=== PATIENT | female | born 1975 | race Caucasian/White ===

== ENCOUNTER 2016-07-17 04:06 | Inpatient (IN) | payer MEDICAID ==
[2016-07-17 04:37] LABS: APPEARANCE,URINE SLIGHTLY-CLOUDY; BILIRUBIN,URINE NEGATIVE (NEGATIVE); GLUCOSE, URINE NEGATIVE (NEGATIVE); KETONES,URINE NEGATIVE (NEGATIVE); LEUKOCYTE ESTERASE,URINE NEGATIVE (NEGATIVE); NITRITE,URINE NEGATIVE (NEGATIVE); PROTEIN,URINE 100 mg/dL (NEGATIVE); URINE SPECIFIC GRAVITY 1.006; UROBILINOGEN,URINE NEGATIVE mg/dL (<2.0)
[2016-07-17 04:41] LABS: AMNISURE (ROM) POSITIVE (NEGATIVE)
[2016-07-17] MEDS ORDERED: RINGERS SOLUTION,LACTATED 1,000 ML IV ONE (04:46)
[2016-07-17] MEDS ORDERED: RINGERS SOLUTION,LACTATED 1,000 ML IV PRN (04:46)
[2016-07-17] MEDS ORDERED: PENICILLIN G-K 5 MILLION UNIT VIAL ONE ×2 (04:51→09:02)
[2016-07-17] MEDS ORDERED: PENICILLIN G-K 5 MILLION UNIT VIAL IV PRN (04:55)
[2016-07-17] MEDS ORDERED: PENICILLIN G POTASSIUM 5,000,000 UNIT in DEXTROSE 5%-WATER 100 ML IV ONE (05:00)
[2016-07-17 05:03] LABS: URINE BARBITURATES SCREEN NEGATIVE; URINE METHADONE SCREEN NEGATIVE; URINE OPIATES LOW NEGATIVE; URINE PHENCYCLIDINE SCREEN NEGATIVE
[2016-07-17 05:26] LABS: ABSOLUTE EOSINOPHILS # (AUTO) 0.1 10^3/uL (0.0-0.6); ABSOLUTE MONOCYTES (AUTO) 0.8 10^3/uL (0.1-1.4); ABSOLUTE NEUT (AUTO) 6.8 10^3/uL (1.7-8.2); BASOPHILS % (AUTO) 0.4 % (0-2); HEMATOCRIT 29.1 % (36.0-47.0); HGB HCT DIFFERENCE 0.9; LYMPHOCYTES % (AUTO) 27.6 % (13-45); MEAN CORPUSCULAR HEMOGLOBIN 30.4 pg (27.0-33.4); MEAN CORPUSCULAR HGB CONC 34.4 g/dL (32.0-36.0); MEAN CORPUSCULAR VOLUME 88 fl (80-97); MONOCYTES % (AUTO) 7.3 % (3-13); SEGMENTED NEUTROPHILS % (AUTO) 63.7 % (42-78); WHITE BLOOD COUNT 10.7 10^3/uL (4.0-10.5)
[2016-07-17] MEDS ORDERED: OXYTOCIN/NORMAL SALINE 1,000 ML IV PRN ×2 (05:32→12:39)
[2016-07-17] MEDS ORDERED: OXYTOCIN/NORMAL SALINE 20 UNIT/1,000 ML RTUINJ ONE ×2 (05:51→11:35)
[2016-07-17 07:02] LABS: CHLAM PCR NOT DETECTED (NOT DETECT)
[2016-07-17] MEDS ORDERED: PENICILLIN G POTASSIUM 2,500,000 UNIT in DEXTROSE 5%-WATER 50 ML IV SCH (09:00)
[2016-07-17] MEDS ORDERED: FENTANYL/BUPIVACAINE/NS/PF 200 MCG/100 ML RTUINJ EPI ONE (09:03)
[2016-07-17] MEDS ORDERED: BUPIVACAINE HCL 0.25 % INJ/PF (2.5 MG/1 ML) 30 ML VIAL ONE (09:03)
[2016-07-17] MEDS ORDERED: EPHEDRINE SULFATE INJ 50 MG/1 ML AMPULE ONE (09:03)
--- NOTE | 2016-07-17 09:19 | L&D Progress Notes ---
PROGRESS NOTES Datetime Report Generated by CPN: 07/17/2016 09:19 PROGRESS NOTE Impression: Normal Progression of Labor Plan: Continue Present Management; Augmentation Informed Consent Obtained: Vaginal Delivery; Risks, Benefits and Alternatives Discussed Vital Signs : Reviewed Comment: 40 yo presents with PPROM at 0230 clear history- smoker/ ama NKDA nontender FHTs 130s average variability Cat 1 ctxs 1-3 minutes apart pitocin at 10 mu/min poc reviewed GBS prophylaxis x2 second dose infusing bolusing for epidural anticipate VAGINAL EXAM Dilatation: 3 Effacement: 80 Station: 0 MEMBRANES Membranes: Ruptured Amniotic Fluid Color: Clear FETUS A Monitoring: External US Accelerations: 15X15 Decelerations: None FHR Category: Category I : 36.3 SIGNATURE SIGNATURE: [id number] Assignment: Laina Deal MD Signature: with User ID: [email or web address] : with User ID: [email or web address]
[2016-07-17] MEDS ORDERED: MISOPROSTOL 0.2 MG TABLET ONE (11:34)
[2016-07-17] MEDS ORDERED: LIDOCAINE 1% INJ-PF (10 MG/ML) 30 ML SDV ONE (11:35)
[2016-07-17] MEDS ORDERED: BENZOCAINE/MENTHOL AEROSOL SPRAY 56 ML TOP PRN (12:39)
[2016-07-17] MEDS ORDERED: DIPH/PERTUSS(ACELL)/TETANUS VAC/PF 0.5 ML SYR (>=10YO) IM PRN (12:39)
[2016-07-17] MEDS ORDERED: DIBUCAINE 1% OINTMENT 28 GM TP PRN (12:39)
[2016-07-17] MEDS ORDERED: MEASLES,MUMPS&RUBELLA VACC/PF 0.5 ML VIAL SUBCUT PRN (12:39)
[2016-07-17] MEDS ORDERED: ZOLPIDEM TARTRATE 5 MG TABLET PO PRN (12:39)
--- NOTE | 2016-07-17 16:03 | Delivery Summary ---
Del Sum A-C Datetime Report Generated by CPN: 07/17/2016 16:03 DELIVERY PERSONNEL DELIVERY PERSONNEL: [id number] Delivery Doctor:: Taylor Fu CNM Labor and Delivery Nurse:: Elaina Deal RNrail specialist Nurse:: AMANDA Herman Mercerizing Range Controller/ARCHITECTURE PROFESSOR: Chery Saldañahens, ARCHITECTURE PROFESSOR MATERNAL INFORMATION Delivery Anesthesia: Epidural Medications After Delivery: Pitocin Bolus-Please Comment Meds After Delivery Comment: Pitocin 20 units in 1L NS bolusing per order Estimated Blood Loss (ml): 300 Maternal Complications: None Provider Comments: pt on hands and knees deceleration resuscitated with O2 via fm Dr. Deal at bedside pt complete with urge to push pt placed in lithotomy position ang[place] removed delivery of viable male apgars 9/9 bulb suctioned on perineum SHARI infant to abdomen tactile stimulation elicits spont cry cord blood clamped cut by FOB cord blood obtained placenta rivera placenta to pathology EBL 300 cc LABOR SUMMARY EDC: 08/11/2016 00:00 (Annotations: Data stored by N on behalf of user) No. Babies in Womb: 1 Attempted: No Labor Anesthesia: Epidural LABOR INFORMATION Reason for Induction: Not Applicable Onset of Labor: 07/17/2016 09:14 Complete Dilatation: 07/17/2016 11:32 Oxytocin: Augmentation Group B Beta Strep: Unknown Antibiotics # of Doses: 2 Antibiotics Time of Last Dose: 905 Name of Antibiotic Given: PCN Steroids Given: None Reason Steroids Not Administered: Not Applicable MEMBRANES Membranes Rupture Method: Spontaneous Rupture of Membranes: 07/17/2016 02:30 Length of Rupture (hr): 9.17 Amniotic Fluid Color: Clear Amniotic Fluid Amount: Small Amniotic Fluid Odor: Normal STAGES OF LABOR Stage 1 hr: 2 Stage 1 min: 18 Stage 2 hr: 0 Stage 2 min: 8 Stage 3 hr: 0 Stage 3 min: 3 Total Time in Labor hr: 2 Total Time in Labor min: 29 VAGINAL DELIVERY Episiotomy: None Laceration Extension: N/A Laceration Type: None Laceration Repair: Not Applicable Sponge Count Correct: N/A Sharps Count Correct: N/A CSECTION DELIVERY Primary Indication: N/A Secondary Indication: N/A CSection Incidence: N/A Labor: N/A Elective: N/A CSection Incision: N/A BABY A INFORMATION Infant Delivery Date/Time: 07/17/2016 11:40 Method of Delivery: Vaginal Born in Route : No : N/A Forceps: N/A Vacuum Extraction: N/A Shoulder Dystocia : No PRESENTATION/POSITION BABY A Presentation: Cephalic Cephalic Presentation: Vertex Vertex Position: Right Occipital Anterior Breech Presentation: N/A PLACENTA INFORMATION BABY A Placenta Delivery Time : 07/17/2016 11:43 Placenta Method of Delivery: Spontaneous Placenta Status: Delivered SCORES BABY A Heart Rate 1 min: >100 bpm Resp Effort 1 min: Good Cry Reflex Irritability 1 min: Cough or Sneeze or Pulls Away Muscle Tone 1 min: Active Motion Color 1 min: Body Wood, Extremities Blue Resuscitation Effort 1 min: Tactile Stimulation SCORE 1 MIN: 9 Heart Rate 5 min: >100 bpm Resp Effort 5 min: Good Cry Reflex Irritability 5 min: Cough or Sneeze or Pulls Away Muscle Tone 5 min: Active Motion Color 5 min: Body Wood, Extremities Blue Resuscitation Effort 5 min: Tactile Stimulation SCORE 5 MIN: 9 INFANT INFORMATION BABY A Gestational Age at Delivery: 36.3 Gestational Status: Late - 34- 36.6 Weeks Outcome : Liveborn Infant Condition : Stable Infant Sex: Male IDENTIFICATION BABY A Infant Verification Date/Time: 07/17/2016 12:24 ID Band Number: [id number] RN Verifying Infant: Jazmine Camp RNC Additional Verifying Personnel: Elaina Deal RN WEIGHT/LENGTH BABY A Birthweight (gm): 2980 Weight (lb): 6 Weight (oz): 9 Length (in): 20.00 Length (cm): 50.80 CORD INFORMATION BABY A No. Cord Vessels: 3 Nuchal Cord : N/A Cord Blood Taken: Yes-For Storage (Mom's Blood type +) Suction: Mouth; Nose ASSESSMENT BABY A Complications: Multiple Late Decels Physical Findings at Delivery: Within Normal Limits Respirations: Appears Normal Skin to Skin: Yes Skin to Skin Time (min): 20 Cleat Blanker/ALS Called : No Infant Care By: Tyson Bartlett RN Transferred To: Remains with Mother BABY B INFORMATION : N/A SIGNATURES Assignment: Laina Deal MD Signature: with User ID: Sue : with User ID: Sue
--- NOTE | 2016-07-17 17:24 | L&D Discharge Summary ---
OB Discharge Summary Datetime Report Generated by CPN: 07/17/2016 17:24 DISCHARGE DIAGNOSIS Gestation: 36.3 Number of Babies in Womb: 1 Parity: 2
--- NOTE | 2016-07-17 18:02 | L&D General Admission ---
General Admit Datetime Report Generated by N: 07/17/2016 18:00 INFORMATION Patient Age: 40 (07/15/2016 14:21:QS system process) EDC: 08/11/2016 00:00 (Annotations: Data stored by [facility] on behalf of user) (07/17/2016 04:13:Angela Vizcarra RN) : 4 (07/17/2016 04:13:Angela Vizcarra RN) Para: 2 (07/17/2016 04:13:Bere Sneed RN) Term: 2 (07/17/2016 04:13:Bere Sneed RN) : 0 (07/17/2016 04:13:Bere Sneed RN) Spontaneous Abortions: 1 (07/17/2016 04:13:Angela Vizcarra RN) Induced Abortions: 0 (07/17/2016 04:13:Angela Vizcarra RN) Livin (07/17/2016 04:13:Angela Vizcarra RN) Cesareans: 0 (07/17/2016 04:13:Angela Vizcarra RN) VBACs: 0 (07/17/2016 04:13:Angela Vizcarra RN) Ectopic: 0 (07/17/2016 04:13:Angela Vizcarra RN) Multiple Births: 0 (07/17/2016 04:13:Angela Vizcarra RN) Baby, Number in Womb: 1 (07/17/2016 04:13:Angela Vizcarra RN) CARE Primary Product Analyst: [facility] (07/17/2016 04:13:Angela Vizcarra RN) Month of 1st Visit: 2015 (07/17/2016 04:13:Angela Vizcarra RN) Adequate Care: Yes (07/17/2016 04:13:Bere Sneed RN) Prepregnancy Weight (lb): 113 (07/17/2016 04:13:Bere Sneed RN) Prepregnancy Weight (kg): 51.4 (07/17/2016 04:13:QS system process) Height (in): 64 (07/17/2016 14:24:QS system process) ALLERGIES Medication Allergy: Yes (07/17/2016 04:13:Bere Sneed RN) Medication Allergies: No Known Allergies (07/17/2016) (07/17/2016 04:18:QS system process) COMMUNICATION Primary Language: Armenian (07/17/2016 04:13:Angela Vizcarra RN) Medical Tx Preferred Language: Armenian (07/17/2016 04:13:Angela Vizcarra RN) Armenian Communication Ability: Speaks Armenian; Reads Armenian (07/17/2016 04:13:Angela Vizcarra RN) Communication Barrier(s): None (07/17/2016 04:13:Angela Vizcarra RN) DEMOGRAPHICS Address: [address] [place] [id number] (07/15/2016 14:21:QS system process) Zipcode: [address] (07/15/2016 14:21:QS system process) Home (07/15/2016 14:21:QS system process) N: [id number] (07/15/2016 14:21:QS system process) Next of Kin Name: CHRISTIN HERNANDEZ (07/15/2016 14:21:QS system process) Next of Kin (07/15/2016 14:21:QS system process) Next of Kin Relationship: (07/15/2016 14:21:QS system process) Date of : 1975 (07/15/2016 14:21:QS system process) Marital Status: (07/15/2016 14:21:QS system process) Sex: Female (07/15/2016 14:21:QS system process) Race: (07/15/2016 14:21:QS system process) Ethnicity: Non- or (07/15/2016 14:21:QS system process) Episcopal: Bahai (07/15/2016 14:21:QS system process) DRUG AND ALCOHOL USE Alcohol: No (07/17/2016 04:13:Angela Vizcarra RN) Cigarettes: Current Everyday Smoker. [id number] (07/17/2016 04:13:Angela Vizcarra RN) Average Cigarettes Smoked: > 10 per day (07/17/2016 04:13:Angela Vizcarra RN) Advised to Stop Smoking: No (07/17/2016 04:13:Angela Vizcarra RN) Cigarette Comments: 1 ppd (07/17/2016 04:13:Angela Vizcarra RN) Marijuana: No (07/17/2016 04:13:Angela Vizcarra RN) Cocaine: No (07/17/2016 04:13:Angela Vizcarra RN) Other Illicit Drugs: No (07/17/2016 04:13:Angela Vizcarra RN) VACCINE HISTORY Influenza Vaccine: No (07/17/2016 04:13:Angela Vizcarra RN) Pneumococcal Vaccine: No (07/17/2016 04:13:Angela Vizcarra RN) Tetanus Vaccine: Uncertain (07/17/2016 04:13:Angela Vizcarra RN) Tdap Vaccine: Yes (07/17/2016 04:13:Angela Vizcarra RN) Hepatitis B Vaccine: Yes (07/17/2016 04:13:Angela Vizcarra RN) Dance Coach: [facility] (07/17/2016 04:13:Angela Vizcarra RN) Feeding Preference: Breast (07/17/2016 04:13:Angela Vizcarra RN) Benefit of Breast Feed Discussed: Yes (07/17/2016 04:13:Angela Vizcarra RN) Circumcision: Yes (07/17/2016 04:13:Angela Vizcarra RN) Tubal Ligation: No (07/17/2016 04:13:Angela Vizcarra RN) Tubal Authorization Signed: N/A (07/17/2016 04:13:Angela Vizcarra RN) Consent: N/A (07/17/2016 04:13:Angela Vizcarra RN) Consent Signed: N/A (07/17/2016 04:13:Angela Vizcarra RN) Pain Management Plans: Epidural (07/17/2016 04:13:Angela Vizcarra RN) Plans for Labor and Delivery: None (07/17/2016 04:13:Angela Vizcarra RN) Support Person: Tito Fox (07/17/2016 04:13:Angela Vizcarra RN) Support Person Relationship: Significant Other (07/17/2016 04:13:Angela Vizcarra RN) Cultural/Spritual Practice: No (07/17/2016 04:13:Angela Vizcarra RN) Spir/Cult Dietary Needs: No (07/17/2016 04:13:Angela Vizcarra RN) LIVING SITUATION/DISCHARGE PLAN Living Arrangements: Apartment (07/17/2016 04:13:Angela Vizcarra RN) Adequate Access to:: Electric; Heat; Refrigeration; Plumbing/Running water; Phone; Transportation (07/17/2016 04:13:Angela Vizcarra RN) WIC Program: Yes (07/17/2016 04:13:Angela Vizcarra RN) Discharge Career Development Associate Person: Tito (07/17/2016 04:13:Angela Vizcarra RN) Person to Help after Discharge: gina (07/17/2016 04:13:Angela Vizcarra RN) Currently Using Commun Resources: Yes (07/17/2016 04:13:Angela Vizcarra RN) Specify Current Resource Used: Medicaid; food stamps (07/17/2016 04:13:Angela Vizcarra RN) Car Seat for Discharge: Yes (07/17/2016 04:13:Angela Vizcarra RN) Adoption Requested: No (07/17/2016 04:13:Angela Vizcarra RN) Pt Contact w/infant Post : N/A (07/17/2016 04:13:Angela Vizcarra RN) LABS Blood Type: A Positive (07/17/2016 04:13:Bere Sneed RN) Antibody Screen: Negative (07/17/2016 04:13:Bere Sneed RN) Rho(G) this : Not Applicable (07/17/2016 04:13:Bere Sneed RN) Hemoglobin: 10.0 L (07/17/2016 05:04:QS system process) Hematocrit: 29.1 L (07/17/2016 05:04:QS system process) MCV: 88 (07/17/2016 05:04:QS system process) Group Beta Strep: Unknown (07/17/2016 04:13:Bere Sneed RN) RPR/VDRL: Nonreactive (07/17/2016 04:13:Bere Sneed RN) HIV Results: Negative (07/17/2016 04:13:Bere Sneed RN) Hepatitis B: Negative (07/17/2016 04:13:Bere Sneed RN) Rubella: Immune (07/17/2016 04:13:Bere Sneed RN) OB/PREVIOUS HISTORY Previous Procedures: Ultrasound (07/17/2016 04:13:Bere Sneed RN) Current Procedures: Ultrasound (07/17/2016 04:13:Angela Vizcarra RN) History of Previous : No (07/17/2016 04:13:Angela Vizcarra RN) History of Gestational Diabetes: Yes (07/17/2016 04:13:Angela Vizcarra RN) History of PIH: No (07/17/2016 04:13:Angela Vizcarra RN) History of Incompetent Cervix: No (07/17/2016 04:13:Angela Vizcarra RN) History of Placenta Previa/Abrup: No (07/17/2016 04:13:Angela Vizcarra RN) History of Macrosomia: No (07/17/2016 04:13:Angela Vizcarra RN) History of IUGR: No (07/17/2016 04:13:Angela Vizcarra RN) History of Hemorrhage: No (07/17/2016 04:13:Angela Vizcarra RN) History of Loss/Stillborn: No (07/17/2016 04:13:Angela Vizcarra RN) History of : No (07/17/2016 04:13:Angela Vizcarra RN) History of D (Rh) Sensitization: No (07/17/2016 04:13:Angela Vizcarra RN) History Recurrent Loss/Stillborn: No (07/17/2016 04:13:Angela Vizcarra RN) History Depression/PP Depression: No (07/17/2016 04:13:Angela Vizcarra RN) History of Uterine Anomaly/NANO: No (07/17/2016 04:13:Angela Vizcarra RN) History of Infertility: No (07/17/2016 04:13:Angela Vizcarra RN) History of ART Treatment: No (07/17/2016 04:13:Angela Vizcarra RN) History of NANO: No (07/17/2016 04:13:Angela Vizcarra RN) MEDICAL HISTORY Diabetes Type: Gestational Diabetes (07/17/2016 04:13:Angela Vizcarra RN) Med Hx Hypertension: No (07/17/2016 04:13:Angela Vizcarra RN) Med Hx Heart Disease: No (07/17/2016 04:13:Angela Vizcarra RN) Med Hx Autoimmune Disorder: No (07/17/2016 04:13:Angela Vizcarra RN) Med Hx Kidney Disease/UTI: No (07/17/2016 04:13:Angela Vizcarra RN) Med Hx Neurologic/Epilepsy: No (07/17/2016 04:13:Angela Vizcarra RN) Med Hx Psychiatric Disorders: No (07/17/2016 04:13:Angela Vizcarra RN) Med Hx Hepatitis/Liver Disease: No (07/17/2016 04:13:Angela Vizcarra RN) Med Hx Varicosities/Phlebitis: No (07/17/2016 04:13:Angela Vizcarra RN) Med Hx Thyroid Dysfunction: No (07/17/2016 04:13:Angela Vizcarra RN) Med Hx Trauma/Violence: No (07/17/2016 04:13:Angela Vizcarra RN) Med Hx Blood Transfusion: No (07/17/2016 04:13:Angela Vizcarra RN) Med Hx Pulmonary (Asthma,TB): No (07/17/2016 04:13:Angela Vizcarra RN) Med Hx Breast: No (07/17/2016 04:13:Angela Vizcarra RN) Med Hx PRESALES SENIOR SPECIALIST Surgery: No (07/17/2016 04:13:Angela Vizcarra RN) Med Hx Hospitalization/Surgery: Yes (07/17/2016 04:13:Angela Vizcarra RN) Med Hx Anesthetic Complications: No (07/17/2016 04:13:Angela Vizcarra RN) Med Hx Abnormal Pap Smear: No (07/17/2016 04:13:Angela Vizcarra RN) Other Medical Diseases: No (07/17/2016 04:13:Angela Vizcarra RN) Med Hx Significant Family Hx: No (07/17/2016 04:13:Angela Vizcarra RN) INFECTIOUS HISTORY Inf Hx Gonorrhea: No (07/17/2016 04:13:Angela Vizcarra RN) Inf Hx Chlamydia: No (07/17/2016 04:13:Angela Vizcarra RN) Inf Hx Syphilis: No (07/17/2016 04:13:Angela Vizcarra RN) Inf Hx HIV/AIDS: No (07/17/2016 04:13:Angela Vizcarra RN) Inf Hx Human Papilloma Virus: No (07/17/2016 04:13:Angela Vizcarra RN) Inf Hx Pt/Partner Genital Herpes: No (07/17/2016 04:13:Angela Vizcarra RN) Inf Hx Tuberculosis/Exposure: No (07/17/2016 04:13:Angela Vizcarra RN) Inf Hx Hepatitis B,C: No (07/17/2016 04:13:Angela Vizcarra RN) Inf Hx Rash or Viral Illness: No (07/17/2016 04:13:Angela Vizcarra RN) GENETIC HISTORY Gen Hx Age >=35 at CUONG: No (07/17/2016 04:13:Angela Vizcarra RN) Gen Hx Thalassemia: No (07/17/2016 04:13:Angela Vizcarra RN) Gen Hx Congenital Heart Defect: No (07/17/2016 04:13:Angela Vizcarra RN) Gen Hx Neural Tube Defect: No (07/17/2016 04:13:Angela Vizcarra RN) Gen Hx Down's Syndrome: No (07/17/2016 04:13:Angela Vizcarra RN) Gen Hx Rafael-Sachs: No (07/17/2016 04:13:Angela Vizcarra RN) Gen Hx Sundar: No (07/17/2016 04:13:Angela Vizcarra RN) Gen Hx Familial Dysautonomia: No (07/17/2016 04:13:Angela Vizcarra RN) Gen Hx Sickle Cell Disease/Trait: No (07/17/2016 04:13:Angela Vizcarra RN) Gen Hx Cystic Fibrosis: No (07/17/2016 04:13:Angela Vizcarra RN) Gen Hx Huntingtons Chorea: No (07/17/2016 04:13:Angela Vizcarra RN) Gen Hx Mental Retardation/Autism: No (07/17/2016 04:13:Angela Vizcarra RN) Gen Hx Tested for Fragile X: No (07/17/2016 04:13:Angela Vizcarra RN) Gen Hx Other Inher/Chromosomal: No (07/17/2016 04:13:Angela Vizcarra RN) Gen Hx Maternal Metabolic DO: No (07/17/2016 04:13:Angela Vizcarra RN) Gen Hx Pt Father or FOB Defect: No (07/17/2016 04:13:Angela Vizcarra RN) Gen Hx Other Genetic History: No (07/17/2016 04:13:Angela Vizcarra RN) Gen Hx Drugs/Meds since LMP: Yes (07/17/2016 04:13:Angela Vizcarra RN) Gen Hx Medications: prenatals and iron (07/17/2016 04:13:Angela Vizcarra RN)
[2016-07-17] MEDS: FERROUS SULFATE 325 MG TABLET PO SCH (18:43)
[2016-07-17] MEDS: DOCUSATE SODIUM 100 MG CAPSULE PO SCH (18:43)
--- NOTE | 2016-07-17 19:01 | L&D Flow Sheet ---
LD Flowsheet Datetime Report Generated by CPN: 07/17/2016 19:00 Datetime: 07/17/2016 12:28 NBP Sys/Maggie/Mean (mmHg): 117 (QS system process) : 71 (QS system process) : 89 (QS system process) Pulse: 74 (QS system process) Communication Comments: transported to [facility] [place] by Riki Romo RN for low temperature (Elaina Deal RN) LaborFlag: Antepartum (QS system process) Datetime: 07/17/2016 12:03 Bedside Blood Glucose: 89 (QS system process) LaborFlag: Antepartum (QS system process) Datetime: 07/17/2016 11:41 Patient Care Comments: O2 discontinued (Elaina Say, RN) Datetime: 07/17/2016 11:37 NBP Sys/Maggie/Mean (mmHg): 123 (QS system process) : 77 (QS system process) : 93 (QS system process) Pulse: 106 (QS system process) LaborFlag: Antepartum (QS system process) Datetime: 07/17/2016 11:35 Pushing: Coached on Pushing; Urge to Push (Elaina Deal RN) Pushing Position: Pushing with Contractions (Elaina Deal RN) Pushing Progress: Descent with Pushing; Presenting Part Visible; with Pushing; Pushing Effectively with Contractions (Elaina Deal RN) Datetime: 07/17/2016 11:34 Patient Care Comments: [place] removed (Elaina Deal RN) Communication Comments: A. emmel At bedside (Elaina Deal RN) Datetime: 07/17/2016 11:32 Dilatation (cm): 10.0 (Elaina Deal RN) Effacement (%): 100 (Elaina Deal RN) Station: 1 (Elaina Deal RN) Exam by: Dr. Deal (Elaina Deal RN) Datetime: 07/17/2016 11:31 NBP Sys/Maggie/Mean (mmHg): 134 (QS system process) : 75 (QS system process) : 96 (QS system process) Pulse: 92 (QS system process) LaborFlag: Antepartum (QS system process) Datetime: 07/17/2016 11:30 Monitor Mode: External; Palpation (Elaina Deal RN) Frequency (min): 3-4 (Elaina Deal RN) Quality: Moderate (Elaina Deal RN) Duration (sec): 80-100 (Elaina Deal RN) Duration Criteria: Less than Two 120 Second Contractions (Elaina Deal RN) Pattern: Normal: <= 5 Contractions in 10 Minutes (Elaina Deal RN) Resting Tone (Palpate): Relaxed (Elaina Deal RN) Monitor Mode: External US (Elaina Deal RN) FHR Baseline Rate : 90 (Elaina Deal RN) FHR Baseline Changes: Bradycardia (Elaina Deal RN) Variability: Moderate 6-25 bpm (Elaina Deal RN) Accelerations: 15X15 (Elaina Deal RN) Decelerations: None (Elaina Deal RN) Patient Care Comments: o2 at 10 L nonrebreather (Elaina Deal RN) Communication Comments: MD at bedside, reviewing strip (Elaina Deal RN) Datetime: 07/17/2016 11:29 Patient Position/Activity: Left Tilt; Low Fowlers (Elaina Deal, RN) Pushing: Coached on Pushing; No Urge to Push (Elaina Deal RN) Pushing Position: Pushing with Contractions; Pushing Lithotomy (Elaina Deal RN) Pushing Progress: Descent with Pushing; Presenting Part Visible (Elaina Deal RN) Datetime: 07/17/2016 11:26 NBP Sys/Maggie/Mean (mmHg): 115 (QS system process) : 73 (QS system process) : 90 (QS system process) Pulse: 76 (QS system process) LaborFlag: Antepartum (QS system process) Datetime: 07/17/2016 11:24 Dilatation (cm): 9.0 (Elaina Deal RN) Effacement (%): 100 (Elaina Deal RN) Station: 0 (Elaina Deal RN) Exam by: Dr. Deal (Elaina Deal, RN) Patient Position/Activity: Hands-Knees (Elaina Deal, RN) Datetime: 07/17/2016 11:23 Medication Comments: ephedrine 10 mg IV (Elaina Deal, QUYNH) Communication: Provider at Bedside (Elaina Deal, QUYNH) Datetime: 07/17/2016 11:21 NBP Sys/Maggie/Mean (mmHg): 106 (QS system process) : 61 (QS system process) : 79 (QS system process) Pulse: 65 (QS system process) LaborFlag: Antepartum (QS system process) Datetime: 07/17/2016 11:20 Patient Position/Activity: Right Extreme; Low Fowlers (Elaina Deal RN) Datetime: 07/17/2016 11:19 Communication: RN at Bedside (Elaina Deal RN) Datetime: 07/17/2016 11:15 NBP Sys/Maggie/Mean (mmHg): 109 (QS system process) : 60 (QS system process) : 79 (QS system process) Pulse: 81 (QS system process) Monitor Mode: External; Palpation (Elaina Deal RN) Frequency (min): 3-3.5 (Elaina Deal RN) Quality: Moderate (Elaina Say, RN) Duration (sec): 70-90 (Elaina Deal, RN) Duration Criteria: Less than Two 120 Second Contractions (Elaina Deal, RN) Pattern: Normal: <= 5 Contractions in 10 Minutes (Elaina Deal RN) Resting Tone (Palpate): Relaxed (Elaina Deal RN) Monitor Mode: External US (Elaina Deal RN) FHR Baseline Rate : 110 (Elaina Deal, RN) FHR Baseline Changes: No Baseline Change (Elaina Deal, RN) Variability: Moderate 6-25 bpm (Elaina Deal, RN) Accelerations: 15X15 (Elaina Deal, RN) Decelerations: None (Elaina Deal, RN) LaborFlag: Antepartum (QS system process) Datetime: 07/17/2016 11:10 NBP Sys/Maggie/Mean (mmHg): 105 (QS system process) : 59 (QS system process) : 75 (QS system process) Pulse: 66 (QS system process) LaborFlag: Antepartum (QS system process) Datetime: 07/17/2016 11:07 NBP Sys/Maggie/Mean (mmHg): 104 (QS system process) : 56 (QS system process) : 76 (QS system process) Pulse: 77 (QS system process) LaborFlag: Antepartum (QS system process) Datetime: 07/17/2016 11:01 NBP Sys/Maggie/Mean (mmHg): 111 (QS system process) : 62 (QS system process) : 82 (QS system process) Pulse: 67 (QS system process) LaborFlag: Antepartum (QS system process) Datetime: 07/17/2016 11:00 Monitor Mode: External; Palpation (Elaina Deal RN) Frequency (min): 2-3.5 (Elaian Deal RN) Quality: Moderate (Elaina Deal RN) Duration (sec): 70-90 (Elaina Deal RN) Duration Criteria: Less than Two 120 Second Contractions (Elaina Deal RN) Pattern: Normal: <= 5 Contractions in 10 Minutes (Elaina Deal RN) Resting Tone (Palpate): Relaxed (Elaina Deal RN) Monitor Mode: External US (Elaina Deal RN) FHR Baseline Rate : 115 (Elaina Deal RN) FHR Baseline Changes: No Baseline Change (Elaina Deal RN) Variability: Moderate 6-25 bpm (Elaina Deal RN) Accelerations: 15X15 (Elaina Deal RN) Decelerations: Late (Elaina Deal RN) Datetime: 07/17/2016 10:56 NBP Sys/Maggie/Mean (mmHg): 123 (QS system process) : 86 (QS system process) : 100 (QS system process) Pulse: 71 (QS system process) LaborFlag: Antepartum (QS system process) Datetime: 07/17/2016 10:50 NBP Sys/Maggie/Mean (mmHg): 122 (QS system process) : 79 (QS system process) : 96 (QS system process) Pulse: 118 (QS system process) Notification Reason: Status Update; Status (Elaina Deal RN) Communication Comments: Riki Fu CNM notified of discontinuation of Pitocin, no new orders receieved, provider reviewed strip (Elaina Deal RN) LaborFlag: Antepartum (QS system process) Datetime: 07/17/2016 10:45 NBP Sys/Maggie/Mean (mmHg): 121 (QS system process) : 75 (QS system process) : 94 (QS system process) Pulse: 114 (QS system process) Monitor Mode: External; Palpation (Elaina Deal RN) Frequency (min): 3 (Elaina Deal RN) Quality: Mild/Moderate (Elaina Deal RN) Duration (sec): 60-90 (Elaina Deal RN) Duration Criteria: Less than Two 120 Second Contractions (Elaina Deal RN) Pattern: Normal: <= 5 Contractions in 10 Minutes (Elaina Deal RN) Resting Tone (Palpate): Relaxed (Elaina Deal RN) Monitor Mode: External US (Elaina Deal RN) FHR Baseline Rate : 120 (Elaina Deal RN) FHR Baseline Changes: No Baseline Change (Elaina Deal RN) Variability: Moderate 6-25 bpm (Elaina Deal RN) Accelerations: 15X15 (Elaina Deal RN) Decelerations: None (Elaina Deal RN) LaborFlag: Antepartum (QS system process) Datetime: 07/17/2016 10:41 Patient Care Comments: o2 discontinued (Elaina Say, RN) Datetime: 07/17/2016 10:40 NBP Sys/Maggie/Mean (mmHg): 123 (QS system process) : 77 (QS system process) : 93 (QS system process) Pulse: 76 (QS system process) LaborFlag: Antepartum (QS system process) Datetime: 07/17/2016 10:38 NBP Sys/Maggie/Mean (mmHg): 114 (QS system process) : 73 (QS system process) : 89 (QS system process) Pulse: 67 (QS system process) LaborFlag: Antepartum (QS system process) Datetime: 07/17/2016 10:30 NBP Sys/Maggie/Mean (mmHg): 119 (QS system process) : 65 (QS system process) : 86 (QS system process) Pulse: 67 (QS system process) Monitor Mode: External; Palpation (Elaina Deal RN) Frequency (min): 2-4 (Elaina Deal RN) Quality: Mild/Moderate (Elaina Deal RN) Duration (sec): 70-90 (Elaina Deal RN) Resting Tone (Palpate): Relaxed (Elaina Deal RN) Monitor Mode: External US (Elaina Deal RN) Variability: Moderate 6-25 bpm (Elaina Deal RN) Accelerations: 15X15 (Elaina Deal RN) Decelerations: Late; Variable (Elaina Deal RN) Comments: unable to determine baseline (Elaina Deal RN) LaborFlag: Antepartum (QS system process) Datetime: 07/17/2016 10:29 NBP Sys/Maggie/Mean (mmHg): 116 (QS system process) : 61 (QS system process) : 83 (QS system process) Pulse: 60 (QS system process) LaborFlag: Antepartum (QS system process) Datetime: 07/17/2016 10:28 NBP Sys/Maggie/Mean (mmHg): 113 (QS system process) : 57 (QS system process) : 77 (QS system process) Pulse: 67 (QS system process) LaborFlag: Antepartum (QS system process) Datetime: 07/17/2016 10:27 NBP Sys/Maggie/Mean (mmHg): 119 (QS system process) : 62 (QS system process) : 86 (QS system process) Pulse: 73 (QS system process) LaborFlag: Antepartum (QS system process) Datetime: 07/17/2016 10:26 NBP Sys/Maggie/Mean (mmHg): 125 (QS system process) : 63 (QS system process) : 85 (QS system process) Pulse: 68 (QS system process) Patient Position/Activity: Tailors (Elaina Deal RN) LaborFlag: Antepartum (QS system process) Datetime: 07/17/2016 10:25 NBP Sys/Maggie/Mean (mmHg): 123 (QS system process) : 70 (QS system process) : 91 (QS system process) Pulse: 101 (QS system process) LaborFlag: Antepartum (QS system process) Datetime: 07/17/2016 10:24 NBP Sys/Maggie/Mean (mmHg): 123 (QS system process) : 66 (QS system process) : 89 (QS system process) Pulse: 56 (QS system process) Patient Position/Activity: Left Extreme (Elaina Deal, RN) LaborFlag: Antepartum (QS system process) Datetime: 07/17/2016 10:23 NBP Sys/Maggie/Mean (mmHg): 121 (QS system process) : 69 (QS system process) : 91 (QS system process) Pulse: 62 (QS system process) LaborFlag: Antepartum (QS system process) Datetime: 07/17/2016 10:22 NBP Sys/Maggie/Mean (mmHg): 120 (QS system process) : 77 (QS system process) : 94 (QS system process) Pulse: 62 (QS system process) Patient Care Comments: o2 at 10 L nonrebreather (Elaina Deal RN) LaborFlag: Antepartum (QS system process) Datetime: 07/17/2016 10:20 NBP Sys/Maggie/Mean (mmHg): 113 (QS system process) : 64 (QS system process) : 81 (QS system process) Pulse: 67 (QS system process) Patient Position/Activity: Right Lateral (Elaina Deal RN) LaborFlag: Antepartum (QS system process) Datetime: 07/17/2016 10:19 NBP Sys/Maggie/Mean (mmHg): 103 (QS system process) : 56 (QS system process) : 73 (QS system process) Pulse: 75 (QS system process) Medication Comments: ephedrine 10 mg (Elaina Deal RN) LaborFlag: Antepartum (QS system process) Datetime: 07/17/2016 10:18 NBP Sys/Maggie/Mean (mmHg): 104 (QS system process) : 56 (QS system process) : 76 (QS system process) Pulse: 66 (QS system process) LaborFlag: Antepartum (QS system process) Datetime: 07/17/2016 10:17 Medication Comments: pitocin discontinued (Elaina Deal RN) Datetime: 07/17/2016 10:15 NBP Sys/Maggie/Mean (mmHg): 121 (QS system process) : 58 (QS system process) : 84 (QS system process) Pulse: 67 (QS system process) Contraction Comments: unable to determine contration pattern due to patient sitting for epidural, abdomen relaxed between contractions (Elaina Deal RN) Comments: difficult to determine baseline due to patient sitting for epidural (Elaina Deal RN) IV/Blood Work: IV Bolus Started (Elaina Deal RN) LaborFlag: Antepartum (QS system process) Datetime: 07/17/2016 10:14 NBP Sys/Maggie/Mean (mmHg): 130 (QS system process) : 68 (QS system process) : 91 (QS system process) LaborFlag: Antepartum (QS system process) Datetime: 07/17/2016 10:13 NBP Sys/Maggie/Mean (mmHg): 121 (QS system process) : 67 (QS system process) : 88 (QS system process) Pulse: 67 (QS system process) LaborFlag: Antepartum (QS system process) Datetime: 07/17/2016 10:12 NBP Sys/Maggie/Mean (mmHg): 125 (QS system process) : 88 (QS system process) : 102 (QS system process) Pulse: 77 (QS system process) Pulse: 70 (QS system process) SpO2 (%): 99 (QS system process) LaborFlag: Antepartum (QS system process) Datetime: 07/17/2016 10:11 NBP Sys/Maggie/Mean (mmHg): 137 (QS system process) : 87 (QS system process) : 105 (QS system process) Pulse: 71 (QS system process) Anesthesia Plans: Epidural (Elaina Deal RN) Epidural Positioning: Sitting (Elaina Deal RN) Epidural Procedure: Loading Dose (Elaina Deal RN) LaborFlag: Antepartum (QS system process) Datetime: 07/17/2016 10:10 NBP Sys/Maggie/Mean (mmHg): 136 (QS system process) : 98 (QS system process) : 113 (QS system process) Pulse: 72 (QS system process) LaborFlag: Antepartum (QS system process) Datetime: 07/17/2016 10:09 Anesthesia Plans: Epidural (Elaina Deal RN) Epidural Positioning: Sitting (Elaina Deal RN) Epidural Procedure: Test Dose (Elaina Deal RN) Datetime: 07/17/2016 10:08 Anesthesia Plans: Epidural (Elaina Deal, RN) Epidural Positioning: Sitting (Elaina Deal, RN) Epidural Procedure: Cath Placed (Elaina Deal, RN) Datetime: 07/17/2016 10:07 Pulse: 79 (QS system process) SpO2 (%): 100 (QS system process) LaborFlag: Antepartum (QS system process) Datetime: 07/17/2016 10:02 Pulse: 73 (QS system process) SpO2 (%): 100 (QS system process) LaborFlag: Antepartum (QS system process) Datetime: 07/17/2016 10:01 Procedure Verify: Correct Patient Identity; Correct Side and Site are Marked; Accurate Procedure Consent Form; Agreement on Procedure to be Done; Correct Patient Position; Relevant Images and Results are Properly Labeled and Displayed; Addressed Need to Administer Antibiotics or Fluids for Irrigation; Safety Precautions Based on Patient History or Medication Use (Elaina Deal RN) Anesthesia Plans: Epidural (Elaina Deal RN) Anesthesia Comments: Dr. De Los Santos at bedside (Elaina Deal RN) Datetime: 07/17/2016 10:00 Monitor Mode: External; Palpation (Elaina Deal RN) Frequency (min): 2-2.5 (Elaina Deal RN) Quality: Mild/Moderate (Elaina Deal RN) Duration (sec): 80-100 (Elaina Deal RN) Duration Criteria: Less than Two 120 Second Contractions (Elaina Deal RN) Pattern: Normal: <= 5 Contractions in 10 Minutes (Elaina Deal RN) Resting Tone (Palpate): Relaxed (Elaina Deal RN) Monitor Mode: External US (Elaina Deal RN) FHR Baseline Rate : 125 (Elaina Deal RN) FHR Baseline Changes: No Baseline Change (Elaina Say, RN) Variability: Moderate 6-25 bpm (Elaina Deal, RN) Accelerations: 15X15 (Elaina Say, RN) Decelerations: Early (Elaina Deal, RN) Datetime: 07/17/2016 09:58 NBP Sys/Maggie/Mean (mmHg): 156 (QS system process) : 91 (QS system process) : 117 (QS system process) Pulse: 73 (QS system process) LaborFlag: Antepartum (QS system process) Datetime: 07/17/2016 09:57 Pulse: 74 (QS system process) SpO2 (%): 100 (QS system process) LaborFlag: Antepartum (QS system process) Datetime: 07/17/2016 09:56 Procedure Verify: Correct Patient Identity; Correct Side and Site are Marked; Accurate Procedure Consent Form; Agreement on Procedure to be Done; Correct Patient Position; Relevant Images and Results are Properly Labeled and Displayed; Addressed Need to Administer Antibiotics or Fluids for Irrigation; Safety Precautions Based on Patient History or Medication Use (Elaina Deal RN) Anesthesia Plans: Epidural (Elaina Deal RN) Epidural Positioning: Sitting (Elaina Deal RN) Datetime: 07/17/2016 09:46 Patient Care Comments: patient sitting for epidural (Elaina Deal RN) Datetime: 07/17/2016 09:45 Monitor Mode: External; Palpation (Elaina Deal RN) Frequency (min): 2-2.5 (Elaina Deal RN) Quality: Mild/Moderate (Elaina Deal RN) Duration (sec): 50-90 (Elaina Deal RN) Duration Criteria: Less than Two 120 Second Contractions (Elaina Say, RN) Pattern: Normal: <= 5 Contractions in 10 Minutes (Elaina Deal, RN) Resting Tone (Palpate): Relaxed (Elaina Deal, RN) Monitor Mode: External US (Elaina Deal, RN) FHR Baseline Rate : 135 (Elaina Deal, RN) FHR Baseline Changes: No Baseline Change (Elaina Deal, RN) Variability: Moderate 6-25 bpm (Elaina Deal, RN) Accelerations: 15X15 (Elaina Deal, RN) Decelerations: None (Elaina Deal, RN) Pitocin (milliunit): Pitocin Remains (milliunits) @ (Annotations: 10) (Elaina Deal, RN) Datetime: 07/17/2016 09:36 Patient Position/Activity: Right Lateral; Low Fowlers (Elaina Deal, RN) Datetime: 07/17/2016 09:32 I/O Interventions: Up to BR (Elaina Say, RN) Datetime: 07/17/2016 09:30 Monitor Mode: External; Palpation (Elaina Deal, QUYNH) Frequency (min): 2-3 (Elaina Deal, RN) Quality: Mild/Moderate (Elaina Deal, RN) Duration (sec): 80-100 (Elaina Deal, RN) Duration Criteria: Less than Two 120 Second Contractions (Elaina Deal, RN) Pattern: Normal: <= 5 Contractions in 10 Minutes (Elaina Deal, RN) Resting Tone (Palpate): Relaxed (Elaina Deal, RN) Monitor Mode: External US (Elaina Deal, RN) FHR Baseline Rate : 125 (Elaina Deal, RN) FHR Baseline Changes: No Baseline Change (Elaina Deal, RN) Variability: Moderate 6-25 bpm (Elaina Deal, RN) Accelerations: 15X15 (Elaina Deal, RN) Decelerations: None (Elaina Deal, RN) Pitocin (milliunit): Pitocin Remains (milliunits) @ (Annotations: 10) (Elaina Deal, RN) Datetime: 07/17/2016 09:19 IV/Blood Work: New IV Bag Hung (Elaina Deal, QUYNH) Datetime: 07/17/2016 09:15 Monitor Mode: External; Palpation (Elaina Deal RN) Frequency (min): 2-3 (Elaina Deal, QUYNH) Quality: Mild/Moderate (Elaina Deal, RN) Duration (sec): 70-90 (Elaina Deal, QUYNH) Duration Criteria: Less than Two 120 Second Contractions (Elaina Deal, QUYNH) Pattern: Normal: <= 5 Contractions in 10 Minutes (Elaina Deal, RN) Resting Tone (Palpate): Relaxed (Elaina Deal, RN) Monitor Mode: External US (Elaina Deal, QUYNH) FHR Baseline Rate : 140 (Elaina Deal, RN) FHR Baseline Changes: No Baseline Change (Elaina Deal, RN) Variability: Moderate 6-25 bpm (Elaina Deal, RN) Accelerations: 15X15 (Elaina Deal, RN) Decelerations: None (Elaina Deal, QUYNH) Pitocin (milliunit): Pitocin Remains (milliunits) @ (Annotations: 10) (Elaina Deal, QUYNH) Datetime: 07/17/2016 09:14 Procedure Verify: Correct Patient Identity; Correct Side and Site are Marked; Accurate Procedure Consent Form; Agreement on Procedure to be Done; Relevant Images and Results are Properly Labeled and Displayed; Addressed Need to Administer Antibiotics or Fluids for Irrigation; Safety Precautions Based on Patient History or Medication Use (Elaina Deal RN) Anesthesia Comments: patient requesting epidural, pain 4/5 with contractions (Elaina Deal RN) Datetime: 07/17/2016 09:11 Dilatation (cm): 3.0 (Elaina Deal RN) Effacement (%): 80 (Elaina Deal RN) Station: -1 (Elaina Deal RN) Exam by: Riki Fu CNM (Elaina Deal RN) Communication: Provider at Bedside (Elaina Deal RN) Communication Comments: Riki Fu CNM at bedside (Elaina Deal RN) Datetime: 07/17/2016 09:06 Antibiotics: Penicillin IV (Units) @ 2,500,000 (Elaina Deal RN) Datetime: 07/17/2016 09:05 NBP Sys/Maggie/Mean (mmHg): 129 (QS system process) : 85 (QS system process) : 102 (QS system process) Pulse: 68 (QS system process) LaborFlag: Antepartum (QS system process) Datetime: 07/17/2016 09:00 Monitor Mode: External; Palpation (Elaina Deal RN) Frequency (min): 2-2.5 (Elaina Deal RN) Quality: Mild/Moderate (Elaina Deal RN) Duration (sec): 80-100 (Elaina Deal RN) Duration Criteria: Less than Two 120 Second Contractions (Elaina Deal RN) Pattern: Normal: <= 5 Contractions in 10 Minutes (Elaina Deal RN) Resting Tone (Palpate): Relaxed (Elaina Deal RN) Monitor Mode: External US (Elaina Deal RN) FHR Baseline Rate : 140 (Elaina Deal RN) FHR Baseline Changes: No Baseline Change (Elaina Deal RN) Variability: Moderate 6-25 bpm (Elaina Deal RN) Accelerations: 15X15 (Elaina Deal RN) Decelerations: None (Elaina Deal RN) Pitocin (milliunit): Pitocin Remains (milliunits) @ (Annotations: 10) (Elaina Deal RN) Datetime: 07/17/2016 08:59 Patient Position/Activity: Right Extreme; Low Fowlers (Elaina Deal, QUYNH) Datetime: 07/17/2016 08:45 Monitor Mode: External; Palpation (Elaina eDal RN) Frequency (min): 2-3 (Elaina Deal RN) Quality: Mild (Elaina Deal RN) Duration (sec): 80-90 (Elaina Deal RN) Duration Criteria: Less than Two 120 Second Contractions (Elaina Deal RN) Pattern: Normal: <= 5 Contractions in 10 Minutes (Elaina Deal RN) Resting Tone (Palpate): Relaxed (Elaina Deal RN) Monitor Mode: External US (Elaina Deal RN) FHR Baseline Rate : 140 (Elaina Deal RN) FHR Baseline Changes: No Baseline Change (Elaina Deal RN) Variability: Moderate 6-25 bpm (Elaina Deal RN) Accelerations: 15X15 (Elaina Deal RN) Decelerations: None (Elaina Deal RN) Pitocin (milliunit): Pitocin Remains (milliunits) @ (Annotations: 10) (Elaina Deal RN) Datetime: 07/17/2016 08:36 NBP Sys/Maggie/Mean (mmHg): 127 (QS system process) : 86 (QS system process) : 102 (QS system process) Pulse: 58 (QS system process) LaborFlag: Antepartum (QS system process) Datetime: 07/17/2016 08:30 Temperature (F): 98.1 (Elaina Deal RN) Temperature (C): 36.7 (QS system process) Monitor Mode: External; Palpation (Elaina Deal RN) Frequency (min): 2-3 (Elaina Deal RN) Quality: Mild (Elaina Deal RN) Duration (sec): 70-80 (Elaina Deal RN) Duration Criteria: Less than Two 120 Second Contractions (Elaina Deal RN) Pattern: Normal: <= 5 Contractions in 10 Minutes (Elaina Deal RN) Resting Tone (Palpate): Relaxed (Elaina Deal RN) Monitor Mode: External US (Elaina Deal RN) FHR Baseline Rate : 140 (Elaina Deal RN) FHR Baseline Changes: No Baseline Change (Elaina Deal, RN) Variability: Moderate 6-25 bpm (Elaina Deal, RN) Accelerations: 15X15 (Elaina Deal, RN) Decelerations: None (Elaina Deal RN) Pitocin (milliunit): Pitocin Remains (milliunits) @ (Annotations: 10) (Elaina Deal RN) LaborFlag: Antepartum (QS system process) Datetime: 07/17/2016 08:24 Patient Position/Activity: Left Tilt; Low Fowlers (Elaina Deal, RN) Datetime: 07/17/2016 08:20 I/O Interventions: Up to BR (Elaina Deal, RN) Datetime: 07/17/2016 08:15 Monitor Mode: External; Palpation (Elaina Deal, RN) Frequency (min): 2-3.5 (Elaina Deal, RN) Quality: Mild (Elaina Deal, RN) Duration (sec): 40-60 (Elaina Deal, RN) Duration Criteria: Less than Two 120 Second Contractions (Elaina Deal, RN) Pattern: Normal: <= 5 Contractions in 10 Minutes (Elaina Deal, RN) Resting Tone (Palpate): Relaxed (Elaina Deal, RN) Monitor Mode: External US (Elaina Deal, RN) FHR Baseline Rate : 140 (Elaina Deal, RN) FHR Baseline Changes: No Baseline Change (Elaina Deal, RN) Variability: Moderate 6-25 bpm (Elaina Deal, RN) Accelerations: 15X15 (Elaina Deal, RN) Decelerations: None (Elaina Deal, RN) Pitocin (milliunit): Pitocin Increased to (milliunits) @ (Annotations: 10) (Elaina Deal, RN) Datetime: 07/17/2016 08:06 NBP Sys/Maggie/Mean (mmHg): 104 (QS system process) : 65 (QS system process) : 80 (QS system process) Pulse: 66 (QS system process) LaborFlag: Antepartum (QS system process) Datetime: 07/17/2016 08:00 Monitor Mode: External; Palpation (Elaina Deal, RN) Frequency (min): 2-4 (Elaina Deal, RN) Quality: Mild (Elaina Deal, RN) Duration (sec): 50-70 (Elaina Deal, RN) Duration Criteria: Less than Two 120 Second Contractions (Elaina Deal, RN) Pattern: Normal: <= 5 Contractions in 10 Minutes (Elaina Deal, RN) Resting Tone (Palpate): Relaxed (Elaina Deal, RN) Monitor Mode: External US (Elaina Deal, RN) FHR Baseline Rate : 140 (Elaina Deal, RN) Variability: Moderate 6-25 bpm (Elaina Deal, RN) Accelerations: 15X15 (Elaina Deal, RN) Decelerations: None (Elaina Deal, RN) Pitocin (milliunit): Pitocin Remains (milliunits) @ (Annotations: 8) (Elaina Deal, RN) Datetime: 07/17/2016 07:45 Monitor Mode: External; Palpation (Elaina Deal, RN) Frequency (min): 3.5-4 (Elaina Deal, RN) Quality: Mild (Elaina Deal, RN) Duration (sec): 60-70 (Elaina Deal, RN) Duration Criteria: Less than Two 120 Second Contractions (Elaina Deal RN) Pattern: Normal: <= 5 Contractions in 10 Minutes (Elaina Deal RN) Resting Tone (Palpate): Relaxed (Elaina Deal RN) Monitor Mode: External US (Elaina Deal RN) FHR Baseline Rate : 130 (Elaina Deal, RN) FHR Baseline Changes: No Baseline Change (Elaina Deal RN) Variability: Moderate 6-25 bpm (Elaina Deal, RN) Accelerations: 15X15 (Elaina Deal, RN) Decelerations: None (Elaina Deal RN) Pitocin (milliunit): Pitocin Remains (milliunits) @ (Annotations: 8) (Elaina Deal RN) Datetime: 07/17/2016 07:38 NBP Sys/Maggie/Mean (mmHg): 108 (QS system process) : 62 (QS system process) : 79 (QS system process) Pulse: 63 (QS system process) LaborFlag: Antepartum (QS system process) Datetime: 07/17/2016 07:30 Monitor Mode: External; Palpation (Elaina Deal RN) Frequency (min): 2-6 (Elaina Deal RN) Quality: Mild (Elaina Deal RN) Duration (sec): 50-70 (Elaina Deal, QUYNH) Duration Criteria: Less than Two 120 Second Contractions (Elaina Deal RN) Pattern: Normal: <= 5 Contractions in 10 Minutes (Elaina Deal RN) Resting Tone (Palpate): Relaxed (Elaina Deal RN) Monitor Mode: External US (Elaina Deal, QUYNH) FHR Baseline Rate : 125 (Elaina Deal, RN) FHR Baseline Changes: No Baseline Change (Elaina Deal RN) Variability: Moderate 6-25 bpm (Elaina Deal, RN) Accelerations: 15X15 (Elaina Deal, QUYNH) Decelerations: None (Elaina Deal, QUYNH) Pitocin (milliunit): Pitocin Increased to (milliunits) @ (Annotations: 8) (Elaina Deal, QUYNH) Datetime: 07/17/2016 07:15 Monitor Mode: External; Palpation (Elaina Deal RN) Frequency (min): 3.5-6.5 (Elaina Deal RN) Quality: Mild (Elaina Deal RN) Duration (sec): 50-70 (Elaina Deal RN) Duration Criteria: Less than Two 120 Second Contractions (Elaina Deal RN) Pattern: Normal: <= 5 Contractions in 10 Minutes (Elaina Deal, QUYNH) Resting Tone (Palpate): Relaxed (Elaina Deal RN) Monitor Mode: External US (Elaina Deal, QUYNH) FHR Baseline Rate : 130 (Elaina Deal, RN) FHR Baseline Changes: No Baseline Change (Elaina Deal, QUYNH) Variability: Moderate 6-25 bpm (Elaina Deal, RN) Accelerations: 15X15 (Elaina Deal RN) Decelerations: None (Elaina Deal RN) Pitocin (milliunit): Pitocin Remains (milliunits) @ (Annotations: 6) (Elaina Deal RN) Datetime: 07/17/2016 07:10 Additional Nursing Comments: Bedside report given to Norm Deal RN (Angela Vizcarra RN)
--- NOTE | 2016-07-17 20:23 | L&D Current Admission ---
Current Admit Datetime Report Generated by CPN: 07/17/2016 20:20 ADMISSION INFORMATION Current Admit Date/Time: 07/17/2016 04:51 (07/17/2016 04:45:Angela Vizcarra RN) Reason for Admission: Rupture of Membranes (07/17/2016 04:45:Angela Vizcarra RN) Chief Complaint: Suspected Rupture of Membranes (07/17/2016 04:45:Angela Vizcarra RN) EGA per Dates: 36.3 (07/17/2016 04:45:QS system process) Method of Arrival: Wheelchair (07/17/2016 04:45:Angela Vizcarra RN) Reason for Induction: Not Applicable (07/17/2016 04:45:Angela Vizcarra RN) Records Available: Yes (07/17/2016 04:45:Angela Vizcarra RN) General Admission Information: Confirmed (07/17/2016 04:45:Angela Vizcarra RN) General Admission Reviewed By: AMANDA Parmar (07/17/2016 04:45:Angela Vizcarra RN) BELONGINGS/ADVANCED DIRECTIVES Advance Direct for Healthcare: No, but Requests Information (07/17/2016 04:45:Angela Vizcarra RN) Durable Power of Dry Ice Maker: No (07/17/2016 04:45:Angela Vizcarra RN) Living Will: No (07/17/2016 04:45:Angela Vizcarra RN) Organ Donor: Yes (07/17/2016 04:45:Angela Vizcarra RN) Pt Rights Information Given: Yes (07/17/2016 04:45:Angela Vizcarra RN) Pt Understands Pt Rights: Yes (07/17/2016 04:45:Angela Vizcarra RN) Patient Rights Comments: Pt access (07/17/2016 04:45:Angela Vizcarra RN) LEARNING ASSESSMENT Knowledge Level: Understands L_D Process (07/17/2016 04:45:Angela Vizcarra RN) Barriers to Learning: None (07/17/2016 04:45:Angela Vizcarra RN) Learning Readiness: Motivated (07/17/2016 04:45:Angela Vizcarra RN) Learns Best By: 1 to 1 Instruction; Reading; Videos; Group Discussion; Demonstration (07/17/2016 04:45:Angela Vizcarra RN) DOMESTIC VIOLANCE SCREENING Dom Viol Threatened/Hurt: No (07/17/2016 04:45:nAgela Vizcarra RN) Hx of Abuse/Neglect past 2yrs: No (07/17/2016 04:45:Angela Vizcarra RN) Feel Unsafe Going Home: No (07/17/2016 04:45:Angela Vizcarra RN) Addt'l Observ Indicating Abuse: No (07/17/2016 04:45:Angela Vizcarra RN) Reason Unable to Complete Screen: N/A, Screen Completed (07/17/2016 04:45:Angela Vizcarra RN) Considered Personal Harm/Suicide: No (07/17/2016 04:45:Angela Vizcarra RN) NUTRITIONAL/FUNCTIONAL SCREENING Problem with Appetite >5 Days: No (07/17/2016 04:45:Angela Vizcarra RN) Chew/Swallow Difficulties: No (07/17/2016 04:45:Angela Vizcarra RN) Inappropriate Wt Gain/Loss: No (07/17/2016 04:45:Angela Vizcarra RN) Presence Skin Breakdown/Ulcer: No (07/17/2016 04:45:Angela Vizcarra RN) Special Diet: No (07/17/2016 04:45:Angela Vizcarra RN) Pt Requests Executive Administrative Assistant Visit: No (07/17/2016 04:45:Angela Vizcarra RN) Hx of Any of the Following?: N/A (07/17/2016 04:45:Angela Vizcarra RN) New Diagnosis of: N/A (07/17/2016 04:45:Angela Vizcarra RN) Requires Assist w/Ambulation: No (07/17/2016 04:45:Angela Vizcarra RN) Uses Assist Device to Ambulate: No (07/17/2016 04:45:Angela Vizcarra RN) Pt Requires Help w/ADL's: No (07/17/2016 04:45:Angela Vizcarra RN)
--- NOTE | 2016-07-17 20:23 | L&D General Admission ---
General Admit Datetime Report Generated by N: 07/17/2016 20:20 INFORMATION Patient Age: 40 (07/15/2016 14:21:QS system process) EDC: 08/11/2016 00:00 (Annotations: Data stored by [facility] on behalf of user) (07/17/2016 04:13:Angela Vizcarra RN) : 4 (07/17/2016 04:13:Angela Vizcarra RN) Para: 2 (07/17/2016 04:13:Bere Sneed RN) Term: 2 (07/17/2016 04:13:Bere Sneed RN) : 0 (07/17/2016 04:13:Bere Sneed RN) Spontaneous Abortions: 1 (07/17/2016 04:13:Angela Vizcarra RN) Induced Abortions: 0 (07/17/2016 04:13:Angela Vizcarra RN) Livin (07/17/2016 04:13:Angela Vizcarra RN) Cesareans: 0 (07/17/2016 04:13:Angela Vizcarra RN) VBACs: 0 (07/17/2016 04:13:Angela Vizcarra RN) Ectopic: 0 (07/17/2016 04:13:Angela Vizcarra RN) Multiple Births: 0 (07/17/2016 04:13:Angela Vizcarra RN) Baby, Number in Womb: 1 (07/17/2016 04:13:Angela Vizcarra RN) CARE Primary Chair Post Machine Operator: [email or web address] (07/17/2016 04:13:Angela Vizcarra RN) Month of 1st Visit: 2015 (07/17/2016 04:13:Angela Vizcarra RN) Adequate Care: Yes (07/17/2016 04:13:Bere Sneed RN) Prepregnancy Weight (lb): 113 (07/17/2016 04:13:Bere Sneed RN) Prepregnancy Weight (kg): 51.4 (07/17/2016 04:13:QS system process) Height (in): 64 (07/17/2016 14:24:QS system process) ALLERGIES Medication Allergy: Yes (07/17/2016 04:13:Bere Sneed RN) Medication Allergies: No Known Allergies (07/17/2016) (07/17/2016 04:18:QS system process) COMMUNICATION Primary Language: [place] (07/17/2016 04:13:Angela Vizcarra RN) Medical Tx Preferred Language: [place] (07/17/2016 04:13:Angela Vizcarra RN) [place] Communication Ability: Speaks [place]; Reads [place] (07/17/2016 04:13:Angela Vizcarra RN) Communication Barrier(s): None (07/17/2016 04:13:Angela Vizcarra RN) DEMOGRAPHICS Address: [address] [place] [id number] (07/15/2016 14:21:QS system process) Zipcode: [address] (07/15/2016 14:21:QS system process) Home (07/15/2016 14:21:QS system process) N: [phone] (07/15/2016 14:21:QS system process) Next of Kin Name: CHRISTIN HERNANDEZ (07/15/2016 14:21:QS system process) Next of Kin (07/15/2016 14:21:QS system process) Next of Kin Relationship: (07/15/2016 14:21:QS system process) Date of : 1975 (07/15/2016 14:21:QS system process) Marital Status: (07/15/2016 14:21:QS system process) Sex: Female (07/15/2016 14:21:QS system process) Race: (07/15/2016 14:21:QS system process) Ethnicity: Non- or (07/15/2016 14:21:QS system process) Confucianism: Episcopalian (07/15/2016 14:21:QS system process) DRUG AND ALCOHOL USE Alcohol: No (07/17/2016 04:13:Angela Vizcarra RN) Cigarettes: Current Everyday Smoker. [id number] (07/17/2016 04:13:Angela Vizcarra RN) Average Cigarettes Smoked: > 10 per day (07/17/2016 04:13:Angela Vizcarra RN) Advised to Stop Smoking: No (07/17/2016 04:13:Angela Vizcarra RN) Cigarette Comments: 1 ppd (07/17/2016 04:13:Angela Vizcarra RN) Marijuana: No (07/17/2016 04:13:Angela Vizcarra RN) Cocaine: No (07/17/2016 04:13:Angela Vizcarra RN) Other Illicit Drugs: No (07/17/2016 04:13:Angela Vizcarra RN) VACCINE HISTORY Influenza Vaccine: No (07/17/2016 04:13:Angela Vizcarra RN) Pneumococcal Vaccine: No (07/17/2016 04:13:Angela Vizcarra RN) Tetanus Vaccine: Uncertain (07/17/2016 04:13:Angela Vizcarra RN) Tdap Vaccine: Yes (07/17/2016 04:13:Angela Vizcarra RN) Hepatitis B Vaccine: Yes (07/17/2016 04:13:Angela Vizcarra RN) Ent Consultant: [facility] (07/17/2016 04:13:Angela Vizcarra RN) Feeding Preference: Breast (07/17/2016 04:13:Angela Vizcarra RN) Benefit of Breast Feed Discussed: Yes (07/17/2016 04:13:Angela Vizcarra RN) Circumcision: Yes (07/17/2016 04:13:Angela Vizcarra RN) Tubal Ligation: No (07/17/2016 04:13:Angela Vizcarra RN) Tubal Authorization Signed: N/A (07/17/2016 04:13:Angela Vizcarra RN) Consent: N/A (07/17/2016 04:13:Angela Vizcarra RN) Consent Signed: N/A (07/17/2016 04:13:Angela Vizcarra RN) Pain Management Plans: Epidural (07/17/2016 04:13:Angela Vizcarra RN) Plans for Labor and Delivery: None (07/17/2016 04:13:Angela Vizcarra RN) Support Person: Tito Fox (07/17/2016 04:13:Angela Vizcarra RN) Support Person Relationship: Significant Other (07/17/2016 04:13:Angela Vizcarra RN) Cultural/Spritual Practice: No (07/17/2016 04:13:Angela Vizcarra RN) Spir/Cult Dietary Needs: No (07/17/2016 04:13:Angela Vizcarra RN) LIVING SITUATION/DISCHARGE PLAN Living Arrangements: Apartment (07/17/2016 04:13:Angela Vizcarra RN) Adequate Access to:: Electric; Heat; Refrigeration; Plumbing/Running water; Phone; Transportation (07/17/2016 04:13:Angela Vizcarra RN) WIC Program: Yes (07/17/2016 04:13:Angela Vizcarra RN) Discharge Professor Of Pathology Person: Tito (07/17/2016 04:13:Angela Vizcarra RN) Person to Help after Discharge: gina (07/17/2016 04:13:Angela Vizcarra RN) Currently Using Commun Resources: Yes (07/17/2016 04:13:Angela Vizcarra RN) Specify Current Resource Used: Medicaid; food stamps (07/17/2016 04:13:Angela Vizcarra RN) Car Seat for Discharge: Yes (07/17/2016 04:13:Angela Vizcarra RN) Adoption Requested: No (07/17/2016 04:13:Angela Vizcarra RN) Pt Contact w/infant Post : N/A (07/17/2016 04:13:Angela Vizcarra RN) LABS Blood Type: A Positive (07/17/2016 04:13:Bere Sneed RN) Antibody Screen: Negative (07/17/2016 04:13:Bere Sneed RN) Rho(G) this : Not Applicable (07/17/2016 04:13:Bere Sneed RN) Hemoglobin: 10.0 L (07/17/2016 05:04:QS system process) Hematocrit: 29.1 L (07/17/2016 05:04:QS system process) MCV: 88 (07/17/2016 05:04:QS system process) Group Beta Strep: Unknown (07/17/2016 04:13:Bere Sneed RN) RPR/VDRL: Nonreactive (07/17/2016 04:13:Bere Sneed RN) HIV Results: Negative (07/17/2016 04:13:Bere Sneed RN) Hepatitis B: Negative (07/17/2016 04:13:Bere Sneed RN) Rubella: Immune (07/17/2016 04:13:Bere Sneed RN) OB/PREVIOUS HISTORY Previous Procedures: Ultrasound (07/17/2016 04:13:Bere Sneed RN) Current Procedures: Ultrasound (07/17/2016 04:13:Angela Vizcarra RN) History of Previous : No (07/17/2016 04:13:Angela Vizcarra RN) History of Gestational Diabetes: Yes (07/17/2016 04:13:Angela Vizcarra RN) History of PIH: No (07/17/2016 04:13:Angela Vizcarra RN) History of Incompetent Cervix: No (07/17/2016 04:13:Angela Vizcarra RN) History of Placenta Previa/Abrup: No (07/17/2016 04:13:Angela Vizcarra RN) History of Macrosomia: No (07/17/2016 04:13:Angela Vizcarra RN) History of IUGR: No (07/17/2016 04:13:Angela Vizcarra RN) History of Hemorrhage: No (07/17/2016 04:13:Angela Vizcarra RN) History of Loss/Stillborn: No (07/17/2016 04:13:Angela Vizcarra RN) History of : No (07/17/2016 04:13:Angela Vizcarra RN) History of D (Rh) Sensitization: No (07/17/2016 04:13:Angela Vizcarra RN) History Recurrent Loss/Stillborn: No (07/17/2016 04:13:Angela Vizcarra RN) History Depression/PP Depression: No (07/17/2016 04:13:Angela Vizcarra RN) History of Uterine Anomaly/NANO: No (07/17/2016 04:13:Angela Vizcarra RN) History of Infertility: No (07/17/2016 04:13:Angela Vizcarra RN) History of ART Treatment: No (07/17/2016 04:13:Angela Vizcarra RN) History of NANO: No (07/17/2016 04:13:Angela Vizcarra RN) MEDICAL HISTORY Diabetes Type: Gestational Diabetes (07/17/2016 04:13:Angela Vizcarra RN) Med Hx Hypertension: No (07/17/2016 04:13:Angela Vizcarra RN) Med Hx Heart Disease: No (07/17/2016 04:13:Angela Vizcarra RN) Med Hx Autoimmune Disorder: No (07/17/2016 04:13:Angela iVzcarra RN) Med Hx Kidney Disease/UTI: No (07/17/2016 04:13:Angela Vizcarra RN) Med Hx Neurologic/Epilepsy: No (07/17/2016 04:13:Angela Vizcarra RN) Med Hx Psychiatric Disorders: No (07/17/2016 04:13:Angela Vizcarra RN) Med Hx Hepatitis/Liver Disease: No (07/17/2016 04:13:Angela Vizcarra RN) Med Hx Varicosities/Phlebitis: No (07/17/2016 04:13:Angela Vizcarra RN) Med Hx Thyroid Dysfunction: No (07/17/2016 04:13:Angela Vizcarra RN) Med Hx Trauma/Violence: No (07/17/2016 04:13:Angela Vizcarra RN) Med Hx Blood Transfusion: No (07/17/2016 04:13:Angela Vizcarra RN) Med Hx Pulmonary (Asthma,TB): No (07/17/2016 04:13:Angela Vizcarra RN) Med Hx Breast: No (07/17/2016 04:13:Angela Vizcarra RN) Med Hx HIGH LEAD YARDER Surgery: No (07/17/2016 04:13:Angela Vizcarra RN) Med Hx Hospitalization/Surgery: Yes (07/17/2016 04:13:Angela Vizcarra RN) Med Hx Anesthetic Complications: No (07/17/2016 04:13:Angela Vizcarra RN) Med Hx Abnormal Pap Smear: No (07/17/2016 04:13:Angela Vizcarra RN) Other Medical Diseases: No (07/17/2016 04:13:Angela Vizcarra RN) Med Hx Significant Family Hx: No (07/17/2016 04:13:Angela Vizcarra RN) INFECTIOUS HISTORY Inf Hx Gonorrhea: No (07/17/2016 04:13:Angela Vizcarra RN) Inf Hx Chlamydia: No (07/17/2016 04:13:Angela Vizcarra RN) Inf Hx Syphilis: No (07/17/2016 04:13:Angela Vizcarra RN) Inf Hx HIV/AIDS: No (07/17/2016 04:13:Angela Vizcarra RN) Inf Hx Human Papilloma Virus: No (07/17/2016 04:13:Angela Vizcarra RN) Inf Hx Pt/Partner Genital Herpes: No (07/17/2016 04:13:Angela Vizcarra RN) Inf Hx Tuberculosis/Exposure: No (07/17/2016 04:13:Angela Vizcarra RN) Inf Hx Hepatitis B,C: No (07/17/2016 04:13:Angela Vizcarra RN) Inf Hx Rash or Viral Illness: No (07/17/2016 04:13:Angela Vizcarra RN) GENETIC HISTORY Gen Hx Age >=35 at CUONG: No (07/17/2016 04:13:Angela Vizcarra RN) Gen Hx Thalassemia: No (07/17/2016 04:13:Angela Vizcarra RN) Gen Hx Congenital Heart Defect: No (07/17/2016 04:13:Angela Vizcarra RN) Gen Hx Neural Tube Defect: No (07/17/2016 04:13:Angela Vizcarra RN) Gen Hx Down's Syndrome: No (07/17/2016 04:13:Angela Vizcarra RN) Gen Hx Rafael-Sachs: No (07/17/2016 04:13:Angela Vizcarra RN) Gen Hx Sundar: No (07/17/2016 04:13:Angela Vizcarra RN) Gen Hx Familial Dysautonomia: No (07/17/2016 04:13:Angela Vizcarra RN) Gen Hx Sickle Cell Disease/Trait: No (07/17/2016 04:13:Angela Vizcarra RN) Gen Hx Cystic Fibrosis: No (07/17/2016 04:13:Angela Vizcarra RN) Gen Hx Huntingtons Chorea: No (07/17/2016 04:13:Angela Vizcarra RN) Gen Hx Mental Retardation/Autism: No (07/17/2016 04:13:Angela Vizcarra RN) Gen Hx Tested for Fragile X: No (07/17/2016 04:13:Angela Vizcarra RN) Gen Hx Other Inher/Chromosomal: No (07/17/2016 04:13:Angela Vizcarra RN) Gen Hx Maternal Metabolic DO: No (07/17/2016 04:13:Angela Vizcarra RN) Gen Hx Pt Father or FOB Defect: No (07/17/2016 04:13:Angela Vizcarra RN) Gen Hx Other Genetic History: No (07/17/2016 04:13:Angela Vizcarra RN) Gen Hx Drugs/Meds since LMP: Yes (07/17/2016 04:13:Angela Vizcarra RN) Gen Hx Medications: prenatals and iron (07/17/2016 04:13:Angela Vizcarra RN)
--- NOTE | 2016-07-17 20:24 | Delivery Summary ---
Del Sum A-C Datetime Report Generated by CPN: 07/17/2016 20:20 DELIVERY PERSONNEL DELIVERY PERSONNEL: [phone] Delivery Doctor:: Taylor Fu CNM Labor and Delivery Nurse:: Elaina Deal RNtower director Nurse:: AMANDA Herman Veterinarian/FORESTRY FARM LABORER: Chery Saldañahens, FORESTRY FARM LABORER MATERNAL INFORMATION Delivery Anesthesia: Epidural Medications After Delivery: Pitocin Bolus-Please Comment Meds After Delivery Comment: Pitocin 20 units in 1L NS bolusing per order Estimated Blood Loss (ml): 300 Maternal Complications: None Provider Comments: pt on hands and knees deceleration resuscitated with O2 via fm Dr. Deal at bedside pt complete with urge to push pt placed in lithotomy position angeles removed delivery of viable male apgars 9/9 bulb suctioned on perineum SHARI infant to abdomen tactile stimulation elicits spont cry cord blood clamped cut by FOB cord blood obtained placenta rivera placenta to pathology EBL 300 cc LABOR SUMMARY EDC: 08/11/2016 00:00 (Annotations: Data stored by N on behalf of user) No. Babies in Womb: 1 Attempted: No Labor Anesthesia: Epidural LABOR INFORMATION Reason for Induction: Not Applicable Onset of Labor: 07/17/2016 09:14 Complete Dilatation: 07/17/2016 11:32 Oxytocin: Augmentation Group B Beta Strep: Unknown Antibiotics # of Doses: 2 Antibiotics Time of Last Dose: 905 Name of Antibiotic Given: PCN Steroids Given: None Reason Steroids Not Administered: Not Applicable MEMBRANES Membranes Rupture Method: Spontaneous Rupture of Membranes: 07/17/2016 02:30 Length of Rupture (hr): 9.17 Amniotic Fluid Color: Clear Amniotic Fluid Amount: Small Amniotic Fluid Odor: Normal STAGES OF LABOR Stage 1 hr: 2 Stage 1 min: 18 Stage 2 hr: 0 Stage 2 min: 8 Stage 3 hr: 0 Stage 3 min: 3 Total Time in Labor hr: 2 Total Time in Labor min: 29 VAGINAL DELIVERY Episiotomy: None Laceration Extension: N/A Laceration Type: None Laceration Repair: Not Applicable Sponge Count Correct: N/A Sharps Count Correct: N/A CSECTION DELIVERY Primary Indication: N/A Secondary Indication: N/A CSection Incidence: N/A Labor: N/A Elective: N/A CSection Incision: N/A BABY A INFORMATION Infant Delivery Date/Time: 07/17/2016 11:40 Method of Delivery: Vaginal Born in Route : No : N/A Forceps: N/A Vacuum Extraction: N/A Shoulder Dystocia : No PRESENTATION/POSITION BABY A Presentation: Cephalic Cephalic Presentation: Vertex Vertex Position: Right Occipital Anterior Breech Presentation: N/A PLACENTA INFORMATION BABY A Placenta Delivery Time : 07/17/2016 11:43 Placenta Method of Delivery: Spontaneous Placenta Status: Delivered SCORES BABY A Heart Rate 1 min: >100 bpm Resp Effort 1 min: Good Cry Reflex Irritability 1 min: Cough or Sneeze or Pulls Away Muscle Tone 1 min: Active Motion Color 1 min: Body Serena, Extremities Blue Resuscitation Effort 1 min: Tactile Stimulation SCORE 1 MIN: 9 Heart Rate 5 min: >100 bpm Resp Effort 5 min: Good Cry Reflex Irritability 5 min: Cough or Sneeze or Pulls Away Muscle Tone 5 min: Active Motion Color 5 min: Body Serena, Extremities Blue Resuscitation Effort 5 min: Tactile Stimulation SCORE 5 MIN: 9 INFANT INFORMATION BABY A Gestational Age at Delivery: 36.3 Gestational Status: Late - 34- 36.6 Weeks Outcome : Liveborn Infant Condition : Stable Infant Sex: Male IDENTIFICATION BABY A Infant Verification Date/Time: 07/17/2016 12:24 ID Band Number: [id number] RN Verifying Infant: Jazmine Camp [facility] Additional Verifying Personnel: Elaina Deal RN WEIGHT/LENGTH BABY A Birthweight (gm): 2980 Weight (lb): 6 Weight (oz): 9 Length (in): 20.00 Length (cm): 50.80 CORD INFORMATION BABY A No. Cord Vessels: 3 Nuchal Cord : N/A Cord Blood Taken: Yes-For Storage (Mom's Blood type +) Suction: Mouth; Nose ASSESSMENT BABY A Complications: Multiple Late Decels Physical Findings at Delivery: Within Normal Limits Respirations: Appears Normal Skin to Skin: Yes Skin to Skin Time (min): 20 Razor Grinder/ALS Called : No Infant Care By: Tyson Bartlett RN Transferred To: Remains with Mother BABY B INFORMATION : N/A SIGNATURES Assignment: Laina Deal MD Signature: with User ID: Sue : with User ID: Sue
--- NOTE | 2016-07-17 20:28 | L&D General Admission ---
General Admit Datetime Report Generated by N: 07/17/2016 20:20 INFORMATION Patient Age: 40 (07/15/2016 14:21:QS system process) EDC: 08/11/2016 00:00 (Annotations: Data stored by [facility] on behalf of user) (07/17/2016 04:13:Angela Vizcarra RN) : 4 (07/17/2016 04:13:Angela Vizcarra RN) Para: 2 (07/17/2016 04:13:Bere Sneed RN) Term: 2 (07/17/2016 04:13:Bere Sneed RN) : 0 (07/17/2016 04:13:Bere Sneed RN) Spontaneous Abortions: 1 (07/17/2016 04:13:Angela Vizcarra RN) Induced Abortions: 0 (07/17/2016 04:13:Angela Vizcarra RN) Livin (07/17/2016 04:13:Angela Vizcarra RN) Cesareans: 0 (07/17/2016 04:13:Angela Vizcarra RN) VBACs: 0 (07/17/2016 04:13:Angela Vizcarra RN) Ectopic: 0 (07/17/2016 04:13:Angela Vizcarra RN) Multiple Births: 0 (07/17/2016 04:13:Angela Vizcarra RN) Baby, Number in Womb: 1 (07/17/2016 04:13:Angela Vizcarra RN) CARE Primary Wind Energy Project Manager: [facility] (07/17/2016 04:13:Angela Vizcarra RN) Month of 1st Visit: 2015 (07/17/2016 04:13:Angela Vizcarra RN) Adequate Care: Yes (07/17/2016 04:13:Bere Sneed RN) Prepregnancy Weight (lb): 113 (07/17/2016 04:13:Bere Sneed RN) Prepregnancy Weight (kg): 51.4 (07/17/2016 04:13:QS system process) Height (in): 64 (07/17/2016 14:24:QS system process) ALLERGIES Medication Allergy: Yes (07/17/2016 04:13:Bere Sneed RN) Medication Allergies: No Known Allergies (07/17/2016) (07/17/2016 04:18:QS system process) COMMUNICATION Primary Language: Barbadian (07/17/2016 04:13:Angela Vizcarra RN) Medical Tx Preferred Language: Barbadian (07/17/2016 04:13:Angela Vizcarra RN) Barbadian Communication Ability: Speaks Barbadian; Reads Barbadian (07/17/2016 04:13:Angela Vizcarra RN) Communication Barrier(s): None (07/17/2016 04:13:Angela Vizcarra RN) DEMOGRAPHICS Address: [address] [place] [id number] (07/15/2016 14:21:QS system process) Zipcode: [address] (07/15/2016 14:21:QS system process) Home (07/15/2016 14:21:QS system process) N: [id number] (07/15/2016 14:21:QS system process) Next of Kin Name: CHRISTIN HERNANDEZ (07/15/2016 14:21:QS system process) Next of Kin (07/15/2016 14:21:QS system process) Next of Kin Relationship: (07/15/2016 14:21:QS system process) Date of : 1975 (07/15/2016 14:21:QS system process) Marital Status: (07/15/2016 14:21:QS system process) Sex: Female (07/15/2016 14:21:QS system process) Race: (07/15/2016 14:21:QS system process) Ethnicity: Non- or (07/15/2016 14:21:QS system process) Anabaptist: Zoroastrian (07/15/2016 14:21:QS system process) DRUG AND ALCOHOL USE Alcohol: No (07/17/2016 04:13:Angela Vizcarra RN) Cigarettes: Current Everyday Smoker. [id number] (07/17/2016 04:13:Angela Vizacrra RN) Average Cigarettes Smoked: > 10 per day (07/17/2016 04:13:Angela Vizcarra RN) Advised to Stop Smoking: No (07/17/2016 04:13:Angela Vizcarra RN) Cigarette Comments: 1 ppd (07/17/2016 04:13:Angela Vizcarra RN) Marijuana: No (07/17/2016 04:13:Angela Vizcarra RN) Cocaine: No (07/17/2016 04:13:Angela Vizcarra RN) Other Illicit Drugs: No (07/17/2016 04:13:Angela Vizcarra RN) VACCINE HISTORY Influenza Vaccine: No (07/17/2016 04:13:Angela Vizcarra RN) Pneumococcal Vaccine: No (07/17/2016 04:13:Angela Vizcarra RN) Tetanus Vaccine: Uncertain (07/17/2016 04:13:Angela Vizcarra RN) Tdap Vaccine: Yes (07/17/2016 04:13:Angela Vizcarra RN) Hepatitis B Vaccine: Yes (07/17/2016 04:13:Angela Vizcarra RN) Nurse Instructor: [facility] (07/17/2016 04:13:Angela Vizcarra RN) Feeding Preference: Breast (07/17/2016 04:13:Angela Vizcarra RN) Benefit of Breast Feed Discussed: Yes (07/17/2016 04:13:Angela Vizcarra RN) Circumcision: Yes (07/17/2016 04:13:Angela Vizcarra RN) Tubal Ligation: No (07/17/2016 04:13:Angela Vizcarra RN) Tubal Authorization Signed: N/A (07/17/2016 04:13:Angela Vizcarra RN) Consent: N/A (07/17/2016 04:13:Angela Vizcarra RN) Consent Signed: N/A (07/17/2016 04:13:Angela Vizcarra RN) Pain Management Plans: Epidural (07/17/2016 04:13:Angela Vizcarra RN) Plans for Labor and Delivery: None (07/17/2016 04:13:Angela Vizcarra RN) Support Person: Tito Fox (07/17/2016 04:13:Angela Vizcarra RN) Support Person Relationship: Significant Other (07/17/2016 04:13:Angela Vizcarra RN) Cultural/Spritual Practice: No (07/17/2016 04:13:Angela Vizcarra RN) Spir/Cult Dietary Needs: No (07/17/2016 04:13:Angela Vizcarra RN) LIVING SITUATION/DISCHARGE PLAN Living Arrangements: Apartment (07/17/2016 04:13:Angela Vizcarra RN) Adequate Access to:: Electric; Heat; Refrigeration; Plumbing/Running water; Phone; Transportation (07/17/2016 04:13:Angela Vizcarra RN) WIC Program: Yes (07/17/2016 04:13:Angela Vizcarra RN) Discharge Felt Cutter Person: Tito (07/17/2016 04:13:Angela Vizcarra RN) Person to Help after Discharge: gina (07/17/2016 04:13:Angela Vizcarra RN) Currently Using Commun Resources: Yes (07/17/2016 04:13:Angela Vizcarra RN) Specify Current Resource Used: Medicaid; food stamps (07/17/2016 04:13:Angela Vizcarra RN) Car Seat for Discharge: Yes (07/17/2016 04:13:Angela Vizcarra RN) Adoption Requested: No (07/17/2016 04:13:Angela Vizcarra RN) Pt Contact w/infant Post : N/A (07/17/2016 04:13:Angela Vizcarra RN) LABS Blood Type: A Positive (07/17/2016 04:13:Bere Sneed RN) Antibody Screen: Negative (07/17/2016 04:13:Bere Sneed RN) Rho(G) this : Not Applicable (07/17/2016 04:13:Bere Sneed RN) Hemoglobin: 10.0 L (07/17/2016 05:04:QS system process) Hematocrit: 29.1 L (07/17/2016 05:04:QS system process) MCV: 88 (07/17/2016 05:04:QS system process) Group Beta Strep: Unknown (07/17/2016 04:13:Bere Sneed RN) RPR/VDRL: Nonreactive (07/17/2016 04:13:Bere Sneed RN) HIV Results: Negative (07/17/2016 04:13:Bere Sneed RN) Hepatitis B: Negative (07/17/2016 04:13:Bere Sneed RN) Rubella: Immune (07/17/2016 04:13:Bere Sneed RN) OB/PREVIOUS HISTORY Previous Procedures: Ultrasound (07/17/2016 04:13:Bere Sneed RN) Current Procedures: Ultrasound (07/17/2016 04:13:Angela Vizcarra RN) History of Previous : No (07/17/2016 04:13:Angela Vizcarra RN) History of Gestational Diabetes: Yes (07/17/2016 04:13:Angela Vizcarra RN) History of PIH: No (07/17/2016 04:13:Angela Vizcarra RN) History of Incompetent Cervix: No (07/17/2016 04:13:Angela Vizcarra RN) History of Placenta Previa/Abrup: No (07/17/2016 04:13:Angela Vizcarra RN) History of Macrosomia: No (07/17/2016 04:13:Angela Vizcarra RN) History of IUGR: No (07/17/2016 04:13:Angela Vizcarra RN) History of Hemorrhage: No (07/17/2016 04:13:Angela Vizcarra RN) History of Loss/Stillborn: No (07/17/2016 04:13:Angela Vizcarra RN) History of : No (07/17/2016 04:13:Angela Vizcarra RN) History of D (Rh) Sensitization: No (07/17/2016 04:13:Angela Vizcarra RN) History Recurrent Loss/Stillborn: No (07/17/2016 04:13:Angela Vizcarra RN) History Depression/PP Depression: No (07/17/2016 04:13:Angela Vizcarra RN) History of Uterine Anomaly/NANO: No (07/17/2016 04:13:Angela Vizcarra RN) History of Infertility: No (07/17/2016 04:13:Angela Vizcarra RN) History of ART Treatment: No (07/17/2016 04:13:Angela Vizcarra RN) History of NANO: No (07/17/2016 04:13:Angela Vizcarra RN) MEDICAL HISTORY Diabetes Type: Gestational Diabetes (07/17/2016 04:13:Angela Vizcarra RN) Med Hx Hypertension: No (07/17/2016 04:13:Angela Vizcarra RN) Med Hx Heart Disease: No (07/17/2016 04:13:Angela Vizcarra RN) Med Hx Autoimmune Disorder: No (07/17/2016 04:13:Angela Vizcarra RN) Med Hx Kidney Disease/UTI: No (07/17/2016 04:13:Angela Vizcarra RN) Med Hx Neurologic/Epilepsy: No (07/17/2016 04:13:Angela Vizcarra RN) Med Hx Psychiatric Disorders: No (07/17/2016 04:13:Angela Vizcarra RN) Med Hx Hepatitis/Liver Disease: No (07/17/2016 04:13:Angela Vizcarra RN) Med Hx Varicosities/Phlebitis: No (07/17/2016 04:13:Angela Vizcarra RN) Med Hx Thyroid Dysfunction: No (07/17/2016 04:13:Angela Vizcarra RN) Med Hx Trauma/Violence: No (07/17/2016 04:13:Angela Vizcarra RN) Med Hx Blood Transfusion: No (07/17/2016 04:13:Angela Vizcarra RN) Med Hx Pulmonary (Asthma,TB): No (07/17/2016 04:13:Angela Vizcarra RN) Med Hx Breast: No (07/17/2016 04:13:Angela Vizcarra RN) Med Hx COMMERCIAL LINES ACCOUNT MANAGER Surgery: No (07/17/2016 04:13:Angela Vizcarra RN) Med Hx Hospitalization/Surgery: Yes (07/17/2016 04:13:Angela Vizcarra RN) Med Hx Anesthetic Complications: No (07/17/2016 04:13:Angela Vizcarra RN) Med Hx Abnormal Pap Smear: No (07/17/2016 04:13:Angela Vizcarra RN) Other Medical Diseases: No (07/17/2016 04:13:Angela Vizcrara RN) Med Hx Significant Family Hx: No (07/17/2016 04:13:Angela Vizcarra RN) INFECTIOUS HISTORY Inf Hx Gonorrhea: No (07/17/2016 04:13:Angela Vizcarra RN) Inf Hx Chlamydia: No (07/17/2016 04:13:Angela Vizcarra RN) Inf Hx Syphilis: No (07/17/2016 04:13:Angela Vizcarra RN) Inf Hx HIV/AIDS: No (07/17/2016 04:13:Angela Vizcarra RN) Inf Hx Human Papilloma Virus: No (07/17/2016 04:13:Angela Vizcarra RN) Inf Hx Pt/Partner Genital Herpes: No (07/17/2016 04:13:Angela Vizcarra RN) Inf Hx Tuberculosis/Exposure: No (07/17/2016 04:13:Angela Vizcarra RN) Inf Hx Hepatitis B,C: No (07/17/2016 04:13:Angela Vizcarra RN) Inf Hx Rash or Viral Illness: No (07/17/2016 04:13:Angela Vizcarra RN) GENETIC HISTORY Gen Hx Age >=35 at CUONG: No (07/17/2016 04:13:Angela Vizcarra RN) Gen Hx Thalassemia: No (07/17/2016 04:13:Angela Vizcarra RN) Gen Hx Congenital Heart Defect: No (07/17/2016 04:13:Angela Vizcarra RN) Gen Hx Neural Tube Defect: No (07/17/2016 04:13:Angela Vizcarra RN) Gen Hx Down's Syndrome: No (07/17/2016 04:13:Angela Vizcarra RN) Gen Hx Rafael-Sachs: No (07/17/2016 04:13:Angela Vizcarra RN) Gen Hx Sundar: No (07/17/2016 04:13:Angela Vizcarra RN) Gen Hx Familial Dysautonomia: No (07/17/2016 04:13:Angela Vizcarra RN) Gen Hx Sickle Cell Disease/Trait: No (07/17/2016 04:13:Angela Vizcarra RN) Gen Hx Cystic Fibrosis: No (07/17/2016 04:13:Angela Vizcarra RN) Gen Hx Huntingtons Chorea: No (07/17/2016 04:13:Angela Vizcarra RN) Gen Hx Mental Retardation/Autism: No (07/17/2016 04:13:Angela Vizcarra RN) Gen Hx Tested for Fragile X: No (07/17/2016 04:13:Angela Vizcarra RN) Gen Hx Other Inher/Chromosomal: No (07/17/2016 04:13:Angela Vizcarra RN) Gen Hx Maternal Metabolic DO: No (07/17/2016 04:13:Angela Vizcarra RN) Gen Hx Pt Father or FOB Defect: No (07/17/2016 04:13:Angela Vizcarra RN) Gen Hx Other Genetic History: No (07/17/2016 04:13:Angela Vizcarra RN) Gen Hx Drugs/Meds since LMP: Yes (07/17/2016 04:13:Angela Vizcarra RN) Gen Hx Medications: prenatals and iron (07/17/2016 04:13:Angela Vizcarra RN)
--- NOTE | 2016-07-17 20:28 | L&D Current Admission ---
Current Admit Datetime Report Generated by CPN: 07/17/2016 20:20 ADMISSION INFORMATION Current Admit Date/Time: 07/17/2016 04:51 (07/17/2016 04:45:Angela Vizcarra RN) Reason for Admission: Rupture of Membranes (07/17/2016 04:45:Angela Vizcarra RN) Chief Complaint: Suspected Rupture of Membranes (07/17/2016 04:45:Angela Vizcarra RN) EGA per Dates: 36.3 (07/17/2016 04:45:QS system process) Method of Arrival: Wheelchair (07/17/2016 04:45:Angela Vizcarra RN) Reason for Induction: Not Applicable (07/17/2016 04:45:Angela Vizcarra RN) Records Available: Yes (07/17/2016 04:45:Angela Vizcarra RN) General Admission Information: Confirmed (07/17/2016 04:45:Angela Vizcarra RN) General Admission Reviewed By: AMANDA Parmar (07/17/2016 04:45:Angela Vizcarra RN) BELONGINGS/ADVANCED DIRECTIVES Advance Direct for Healthcare: No, but Requests Information (07/17/2016 04:45:Angela Vizcarra RN) Durable Power of Contract Accountant: No (07/17/2016 04:45:Angela Vizcarra RN) Living Will: No (07/17/2016 04:45:Angela Vizcarra RN) Organ Donor: Yes (07/17/2016 04:45:Angela Vizcarra RN) Pt Rights Information Given: Yes (07/17/2016 04:45:Angela Vizcarra RN) Pt Understands Pt Rights: Yes (07/17/2016 04:45:Angela Vizcarra RN) Patient Rights Comments: Pt access (07/17/2016 04:45:Angela Vizcarra RN) LEARNING ASSESSMENT Knowledge Level: Understands L_D Process (07/17/2016 04:45:Angela Vizcarra RN) Barriers to Learning: None (07/17/2016 04:45:Angela Vizcarra RN) Learning Readiness: Motivated (07/17/2016 04:45:Angela Vizcarra RN) Learns Best By: 1 to 1 Instruction; Reading; Videos; Group Discussion; Demonstration (07/17/2016 04:45:Angela Vizcarra RN) DOMESTIC VIOLANCE SCREENING Dom Viol Threatened/Hurt: No (07/17/2016 04:45:Angela Vizcarra RN) Hx of Abuse/Neglect past 2yrs: No (07/17/2016 04:45:Angela Vizcarra RN) Feel Unsafe Going Home: No (07/17/2016 04:45:Angela Vizcarra RN) Addt'l Observ Indicating Abuse: No (07/17/2016 04:45:Angela Vizcarra RN) Reason Unable to Complete Screen: N/A, Screen Completed (07/17/2016 04:45:Angela Vizcarra RN) Considered Personal Harm/Suicide: No (07/17/2016 04:45:Angela Vizcarra RN) NUTRITIONAL/FUNCTIONAL SCREENING Problem with Appetite >5 Days: No (07/17/2016 04:45:Angela Vizcarra RN) Chew/Swallow Difficulties: No (07/17/2016 04:45:Angela Vizcarra RN) Inappropriate Wt Gain/Loss: No (07/17/2016 04:45:Angela Vizcarra RN) Presence Skin Breakdown/Ulcer: No (07/17/2016 04:45:Angela Vizcarra RN) Special Diet: No (07/17/2016 04:45:Angela Vizcarra RN) Pt Requests Head Girls Golf Coach Visit: No (07/17/2016 04:45:Angela Vizcarra RN) Hx of Any of the Following?: N/A (07/17/2016 04:45:Angela Vizcarra RN) New Diagnosis of: N/A (07/17/2016 04:45:Angela Vizcarra RN) Requires Assist w/Ambulation: No (07/17/2016 04:45:Angela Vizcarra RN) Uses Assist Device to Ambulate: No (07/17/2016 04:45:Angela Vizcarra RN) Pt Requires Help w/ADL's: No (07/17/2016 04:45:Angela Vizcarra RN)
--- NOTE | 2016-07-17 20:28 | Delivery Summary ---
Del Sum A-C Datetime Report Generated by CPN: 07/17/2016 20:20 DELIVERY PERSONNEL DELIVERY PERSONNEL: [phone] Delivery Doctor:: Taylor Fu CNM Labor and Delivery Nurse:: Elaina Deal RNjavascript software engineer Nurse:: AMANDA Herman Supervisor [employer]/CURED MEATS SUPERVISOR: Chery Saldañahens, CURED MEATS SUPERVISOR MATERNAL INFORMATION Delivery Anesthesia: Epidural Medications After Delivery: Pitocin Bolus-Please Comment Meds After Delivery Comment: Pitocin 20 units in 1L NS bolusing per order Estimated Blood Loss (ml): 300 Maternal Complications: None Provider Comments: pt on hands and knees deceleration resuscitated with O2 via fm Dr. Deal at bedside pt complete with urge to push pt placed in lithotomy position ang[place] removed delivery of viable male apgars 9/9 bulb suctioned on perineum SHARI infant to abdomen tactile stimulation elicits spont cry cord blood clamped cut by FOB cord blood obtained placenta rivera placenta to pathology EBL 300 cc LABOR SUMMARY EDC: 08/11/2016 00:00 (Annotations: Data stored by N on behalf of user) No. Babies in Womb: 1 Attempted: No Labor Anesthesia: Epidural LABOR INFORMATION Reason for Induction: Not Applicable Onset of Labor: 07/17/2016 09:14 Complete Dilatation: 07/17/2016 11:32 Oxytocin: Augmentation Group B Beta Strep: Unknown Antibiotics # of Doses: 2 Antibiotics Time of Last Dose: 905 Name of Antibiotic Given: PCN Steroids Given: None Reason Steroids Not Administered: Not Applicable MEMBRANES Membranes Rupture Method: Spontaneous Rupture of Membranes: 07/17/2016 02:30 Length of Rupture (hr): 9.17 Amniotic Fluid Color: Clear Amniotic Fluid Amount: Small Amniotic Fluid Odor: Normal STAGES OF LABOR Stage 1 hr: 2 Stage 1 min: 18 Stage 2 hr: 0 Stage 2 min: 8 Stage 3 hr: 0 Stage 3 min: 3 Total Time in Labor hr: 2 Total Time in Labor min: 29 VAGINAL DELIVERY Episiotomy: None Laceration Extension: N/A Laceration Type: None Laceration Repair: Not Applicable Sponge Count Correct: N/A Sharps Count Correct: N/A CSECTION DELIVERY Primary Indication: N/A Secondary Indication: N/A CSection Incidence: N/A Labor: N/A Elective: N/A CSection Incision: N/A BABY A INFORMATION Infant Delivery Date/Time: 07/17/2016 11:40 Method of Delivery: Vaginal Born in Route : No : N/A Forceps: N/A Vacuum Extraction: N/A Shoulder Dystocia : No PRESENTATION/POSITION BABY A Presentation: Cephalic Cephalic Presentation: Vertex Vertex Position: Right Occipital Anterior Breech Presentation: N/A PLACENTA INFORMATION BABY A Placenta Delivery Time : 07/17/2016 11:43 Placenta Method of Delivery: Spontaneous Placenta Status: Delivered SCORES BABY A Heart Rate 1 min: >100 bpm Resp Effort 1 min: Good Cry Reflex Irritability 1 min: Cough or Sneeze or Pulls Away Muscle Tone 1 min: Active Motion Color 1 min: Body [place], Extremities Blue Resuscitation Effort 1 min: Tactile Stimulation SCORE 1 MIN: 9 Heart Rate 5 min: >100 bpm Resp Effort 5 min: Good Cry Reflex Irritability 5 min: Cough or Sneeze or Pulls Away Muscle Tone 5 min: Active Motion Color 5 min: Body [place], Extremities Blue Resuscitation Effort 5 min: Tactile Stimulation SCORE 5 MIN: 9 INFANT INFORMATION BABY A Gestational Age at Delivery: 36.3 Gestational Status: Late - 34- 36.6 Weeks Outcome : Liveborn Infant Condition : Stable Infant Sex: Male IDENTIFICATION BABY A Infant Verification Date/Time: 07/17/2016 12:24 ID Band Number: [id number] RN Verifying Infant: Jazmine Camp RNC Additional Verifying Personnel: Elaina Deal RN WEIGHT/LENGTH BABY A Birthweight (gm): 2980 Weight (lb): 6 Weight (oz): 9 Length (in): 20.00 Length (cm): 50.80 CORD INFORMATION BABY A No. Cord Vessels: 3 Nuchal Cord : N/A Cord Blood Taken: Yes-For Storage (Mom's Blood type +) Suction: Mouth; Nose ASSESSMENT BABY A Complications: Multiple Late Decels Physical Findings at Delivery: Within Normal Limits Respirations: Appears Normal Skin to Skin: Yes Skin to Skin Time (min): 20 Information Receptionist/ALS Called : No Infant Care By: Tyson Bartlett RN Transferred To: Remains with Mother BABY B INFORMATION : N/A SIGNATURES Assignment: Laina Deal MD Signature: with User ID: Sue : with User ID: Sue
--- NOTE | 2016-07-17 20:28 | L&D Admission Assessment ---
LD ADM ASMT Datetime Report Generated by CPN: 07/17/2016 20:20 Assessment Type: Admission Assessment (07/17/2016 04:45:Angela Vizcarra RN) Weight (lb): 132 (07/17/2016 14:24:QS system process) Weight (lb): 132 (07/17/2016 06:09:QS system process) Weight (lb): 132 (07/17/2016 04:30:QS system process) Weight (kg): 60.0 (07/17/2016 14:24:QS system process) Weight (kg): 60.0 (07/17/2016 06:09:QS system process) Weight (kg): 60.0 (07/17/2016 04:30:QS system process) Total Wt Gain (lb): 19 (07/17/2016 14:24:QS system process) Total Wt Gain (lb): 19 (07/17/2016 06:09:QS system process) Total Wt Gain (lb): 19 (07/17/2016 04:30:QS system process) Wt Gain (kg): 8.6 (07/17/2016 14:24:QS system process) Wt Gain (kg): 8.6 (07/17/2016 06:09:QS system process) Wt Gain (kg): 8.6 (07/17/2016 04:30:QS system process) BMI: 22.7 (07/17/2016 14:24:QS system process) BMI: 22.7 (07/17/2016 06:09:QS system process) Onset of Labor: 07/17/2016 09:14 (07/17/2016 04:13:Elaina Deal RN) Pain Scale: 0 (07/17/2016 04:45:Angela Vizcarra, RN) Frequency (min): 3-4 (07/17/2016 11:30:Elaina Say, RN) Frequency (min): 3-3.5 (07/17/2016 11:15:Elaina Say, RN) Frequency (min): 2-3.5 (07/17/2016 11:00:Elaina Say, RN) Frequency (min): 3 (07/17/2016 10:45:Elaina Say, RN) Frequency (min): 2-4 (07/17/2016 10:30:Elaina Say, RN) Frequency (min): 2-2.5 (07/17/2016 10:00:Elaina Say, RN) Frequency (min): 2-2.5 (07/17/2016 09:45:Elaina Say, RN) Frequency (min): 2-3 (07/17/2016 09:30:Elaina Say, RN) Frequency (min): 2-3 (07/17/2016 09:15:Elaina Say, RN) Frequency (min): 2-2.5 (07/17/2016 09:00:Elaina Say, RN) Frequency (min): 2-3 (07/17/2016 08:45:Elaina Say, RN) Frequency (min): 2-3 (07/17/2016 08:30:Elaina Say, RN) Frequency (min): 2-3.5 (07/17/2016 08:15:Elaina Say, RN) Frequency (min): 2-4 (07/17/2016 08:00:Elaina Say, RN) Frequency (min): 3.5-4 (07/17/2016 07:45:Elaina Say, RN) Frequency (min): 2-6 (07/17/2016 07:30:Elaina Say, RN) Frequency (min): 3.5-6.5 (07/17/2016 07:15:Elaina Say, RN) Frequency (min): 2-4 (07/17/2016 06:59:Angeladavi Vizcarra, RN) Frequency (min): 6 (07/17/2016 06:45:Angela Vizcarra, RN) Frequency (min): 2-6 (07/17/2016 06:30:Angela Vizcarra RN) Frequency (min): 2-5 (07/17/2016 06:15:Angela Vizcarra RN) Frequency (min): 4-5 (07/17/2016 06:00:Angela Vizcarra RN) Frequency (min): 3-5 (07/17/2016 05:30:Angela Vizcarra RN) Frequency (min): 4-7 (07/17/2016 05:00:Angela Vizcarra RN) Frequency (min): q 13 min per pt (07/17/2016 04:45:Angela Vizcarra RN) Duration (sec): 80-100 (07/17/2016 11:30:Elaina Deal RN) Duration (sec): 70-90 (07/17/2016 11:15:Elaina Deal RN) Duration (sec): 70-90 (07/17/2016 11:00:Elaina Deal RN) Duration (sec): 60-90 (07/17/2016 10:45:Elaina Deal RN) Duration (sec): 70-90 (07/17/2016 10:30:Elaina Deal RN) Duration (sec): 80-100 (07/17/2016 10:00:Elaina Deal RN) Duration (sec): 50-90 (07/17/2016 09:45:Elaina Deal RN) Duration (sec): 80-100 (07/17/2016 09:30:Elaina Deal RN) Duration (sec): 70-90 (07/17/2016 09:15:Elaina Deal RN) Duration (sec): 80-100 (07/17/2016 09:00:Elaina Deal RN) Duration (sec): 80-90 (07/17/2016 08:45:Elaina Deal RN) Duration (sec): 70-80 (07/17/2016 08:30:Elaina Deal RN) Duration (sec): 40-60 (07/17/2016 08:15:Elaina Deal RN) Duration (sec): 50-70 (07/17/2016 08:00:Elaina Deal RN) Duration (sec): 60-70 (07/17/2016 07:45:Elaina Say, RN) Duration (sec): 50-70 (07/17/2016 07:30:Elaina Deal RN) Duration (sec): 50-70 (07/17/2016 07:15:Elaina Deal RN) Duration (sec): 70-120 (07/17/2016 06:45:Angela Vizcarra RN) Duration (sec): 60-120 (07/17/2016 06:30:Angela Vizcarra RN) Duration (sec): 60-100 (07/17/2016 06:15:Angela Vizcarra RN) Duration (sec): 50-90 (07/17/2016 06:00:Angela Vizcarra RN) Duration (sec): 50-80 (07/17/2016 05:30:Angela Vizcarra RN) Duration (sec): 50-80 (07/17/2016 05:00:Angela Vizcarra RN) Quality: Moderate (07/17/2016 11:30:Elaina Deal RN) Quality: Moderate (07/17/2016 11:15:Elaina Deal RN) Quality: Moderate (07/17/2016 11:00:Elaina Deal RN) Quality: Mild/Moderate (07/17/2016 10:45:Elaina Deal RN) Quality: Mild/Moderate (07/17/2016 10:30:Elaina Deal RN) Quality: Mild/Moderate (07/17/2016 10:00:Elaina Deal RN) Quality: Mild/Moderate (07/17/2016 09:45:Elaina Deal RN) Quality: Mild/Moderate (07/17/2016 09:30:Elaina Deal RN) Quality: Mild/Moderate (07/17/2016 09:15:Elaina Deal RN) Quality: Mild/Moderate (07/17/2016 09:00:Elaina Deal RN) Quality: Mild (07/17/2016 08:45:Elaina Deal RN) Quality: Mild (07/17/2016 08:30:Elaina Deal RN) Quality: Mild (07/17/2016 08:15:Elaina Deal RN) Quality: Mild (07/17/2016 08:00:Elaina Deal RN) Quality: Mild (07/17/2016 07:45:Elaina Deal RN) Quality: Mild (07/17/2016 07:30:Elaina Deal RN) Quality: Mild (07/17/2016 07:15:Elaina Deal RN) Quality: Mild (07/17/2016 06:59:Angela Vizcarra RN) Quality: Mild (07/17/2016 06:45:Angela Vizcarra RN) Quality: Mild (07/17/2016 06:30:Angela Vizcarra RN) Quality: Mild (07/17/2016 06:15:Angela Vizcarra RN) Quality: Mild (07/17/2016 06:00:Angela Vizcarra RN) Quality: Mild (07/17/2016 05:30:Angela Vizcarra RN) Quality: Mild (07/17/2016 05:00:Angela Vizcarra RN) Pattern: Normal: <= 5 Contractions in 10 Minutes (07/17/2016 11:30:Elaina Deal RN) Pattern: Normal: <= 5 Contractions in 10 Minutes (07/17/2016 11:15:Elaina Deal RN) Pattern: Normal: <= 5 Contractions in 10 Minutes (07/17/2016 11:00:Elaina Deal RN) Pattern: Normal: <= 5 Contractions in 10 Minutes (07/17/2016 10:45:Elaina Deal RN) Pattern: Normal: <= 5 Contractions in 10 Minutes (07/17/2016 10:00:Elaina Dela RN) Pattern: Normal: <= 5 Contractions in 10 Minutes (07/17/2016 09:45:Elaina Deal RN) Pattern: Normal: <= 5 Contractions in 10 Minutes (07/17/2016 09:30:Elaina Deal RN) Pattern: Normal: <= 5 Contractions in 10 Minutes (07/17/2016 09:15:Elaina Deal RN) Pattern: Normal: <= 5 Contractions in 10 Minutes (07/17/2016 09:00:Elaina Deal RN) Pattern: Normal: <= 5 Contractions in 10 Minutes (07/17/2016 08:45:Elaina Deal RN) Pattern: Normal: <= 5 Contractions in 10 Minutes (07/17/2016 08:30:Elaina Deal RN) Pattern: Normal: <= 5 Contractions in 10 Minutes (07/17/2016 08:15:Elaina Say, RN) Pattern: Normal: <= 5 Contractions in 10 Minutes (07/17/2016 08:00:Elaina Deal RN) Pattern: Normal: <= 5 Contractions in 10 Minutes (07/17/2016 07:45:Elaina Deal RN) Pattern: Normal: <= 5 Contractions in 10 Minutes (07/17/2016 07:30:Elaina Deal RN) Pattern: Normal: <= 5 Contractions in 10 Minutes (07/17/2016 07:15:Elaina Deal RN) Pattern: Normal: <= 5 Contractions in 10 Minutes (07/17/2016 06:59:Angela Vizcarra, RN) Pattern: Normal: <= 5 Contractions in 10 Minutes (07/17/2016 06:45:Angela Vizcarra RN) Pattern: Normal: <= 5 Contractions in 10 Minutes (07/17/2016 06:30:Angela Vizcarra, RN) Pattern: Normal: <= 5 Contractions in 10 Minutes (07/17/2016 06:15:Angela Vizcarra, RN) Pattern: Normal: <= 5 Contractions in 10 Minutes (07/17/2016 06:00:Angela Vizcarra, RN) Pattern: Normal: <= 5 Contractions in 10 Minutes (07/17/2016 05:30:Angela Vizcarra, RN) Pattern: Normal: <= 5 Contractions in 10 Minutes (07/17/2016 05:00:Angela Vizcarra, RN) Resting Tone [place]: Relaxed (07/17/2016 11:30:Elaina Deal RN) Resting Tone [place]: Relaxed (07/17/2016 11:15:Elaina Deal RN) Resting Tone [place]: Relaxed (07/17/2016 11:00:Elaina Deal RN) Resting Tone [place]: Relaxed (07/17/2016 10:45:Elaina Deal RN) Resting Tone [place]: Relaxed (07/17/2016 10:30:Elaina Deal RN) Resting Tone [place]: Relaxed (07/17/2016 10:00:Elaina Deal RN) Resting Tone [place]: Relaxed (07/17/2016 09:45:Elaina Deal RN) Resting Tone [place]: Relaxed (07/17/2016 09:30:Elaina Deal RN) Resting Tone [place]: Relaxed (07/17/2016 09:15:Elaina Deal RN) Resting Tone [place]: Relaxed (07/17/2016 09:00:Elaina Deal RN) Resting Tone [place]: Relaxed (07/17/2016 08:45:Elaina Deal RN) Resting Tone [place]: Relaxed (07/17/2016 08:30:Elaina Deal RN) Resting Tone [place]: Relaxed (07/17/2016 08:15:Elaina Deal RN) Resting Tone [place]: Relaxed (07/17/2016 08:00:Elaina Deal RN) Resting Tone [place]: Relaxed (07/17/2016 07:45:Elaina Deal RN) Resting Tone [place]: Relaxed (07/17/2016 07:30:Elaina Deal RN) Resting Tone [place]: Relaxed (07/17/2016 07:15:Elaina Deal RN) Resting Tone [place]: Relaxed (07/17/2016 06:59:Angela Vizcarra RN) Resting Tone [place]: Relaxed (07/17/2016 06:45:Angela Vizcarra RN) Resting Tone [place]: Relaxed (07/17/2016 06:30:Angela Vizcarra RN) Resting Tone [place]: Relaxed (07/17/2016 06:15:Angela Vizcarra RN) Resting Tone [place]: Relaxed (07/17/2016 06:00:Angela Vizcarra RN) Resting Tone [place]: Relaxed (07/17/2016 05:30:Angela Vizcarra RN) Resting Tone [place]: Relaxed (07/17/2016 05:00:Angela Vizcarra RN) Contraction Comments: unable to determine contration pattern due to patient sitting for epidural, abdomen relaxed between contractions (07/17/2016 10:15:Elaina Deal RN) Contraction Comments: Pt states she is "starting to feel u/c's" (07/17/2016 06:00:Angela Vizcarra RN) Dilatation (cm): 10.0 (07/17/2016 11:32:Elaina Deal RN) Dilatation (cm): 9.0 (07/17/2016 11:24:Elaina Deal RN) Dilatation (cm): 3.0 (07/17/2016 09:11:Elaina Deal RN) Dilatation (cm): 2.5 (07/17/2016 04:30:Angela Vizcarra RN) Effacement (%): 100 (07/17/2016 11:32:Elaina Deal RN) Effacement (%): 100 (07/17/2016 11:24:Elaina Deal RN) Effacement (%): 80 (07/17/2016 09:11:Elaina Deal RN) Effacement (%): 50 (07/17/2016 04:30:Angela Vizcarra RN) Station: 1 (07/17/2016 11:32:Elaina Deal RN) Station: 0 (07/17/2016 11:24:Elaina Deal RN) Station: -1 (07/17/2016 09:11:Elaina Deal RN) Station: -2 (07/17/2016 04:30:Angela Vizcarra RN) Membranes Status: Ruptured (Annotations: pooling of amniotic fluid noted on chux.) (07/17/2016 04:30:Angela Vizcarra RN) Membranes Rupture D/ (07/17/2016 04:30:Bere Sneed RN) ROM Method: Spontaneous (07/17/2016 04:30:Bere Sneed RN) ROM Method: Spontaneous (07/17/2016 04:13:Bere Sneed RN) Amniotic Fluid Color: Clear (07/17/2016 04:30:Angela Vizcarra RN) Amniotic Fluid Amount: Small (07/17/2016 04:30:Angela Vizcarra RN) Amniotic Fluid Odor: Normal (07/17/2016 04:30:Angela Vizcarra RN) Level of Consciousness: Fully Conscious (07/17/2016 04:45:Angela Vizcarra RN) DTR's/Clonus: DTRs 1+ (07/17/2016 04:45:Angela Vizcarra RN) Headache: Denies (07/17/2016 04:45:Angela Vizcarra RN) Dizziness: No (07/17/2016 04:45:Angela Vizcarra RN) Blurred Vision: No (07/17/2016 04:45:Angela Vizcarra RN) Extremity Numbness/Tingling : None (07/17/2016 04:45:Angela Vizcarra RN) Extremity Movement: Full Range of Motion (07/17/2016 04:45:Angela Vizcarra RN) Heart Rhythm: Regular (07/17/2016 04:45:Angela Vizcarra RN) Nailbeds: [place] (07/17/2016 04:45:Angela Vizcarra RN) Capillary Refill: Less than 3 Seconds (07/17/2016 04:45:Angela Vizcarra RN) Lower Extremities Edema: None (07/17/2016 04:45:Angela Vizcarra RN) Lower Extremities Edema Degree: None (07/17/2016 04:45:Angela Vizcarra RN) Upper Extremities Edema: None (07/17/2016 04:45:Angela Vizcarra RN) Upper Extremities Edema Degree: None (07/17/2016 04:45:Angela Vizcarra RN) Facial Edema: None (07/17/2016 04:45:Angela Vizcarra RN) Breana's Sign Left Leg: Negative (07/17/2016 04:45:Angela Vizcarra RN) Breana's Sign Right Leg: Negative (07/17/2016 04:45:Angela Vizcarra RN) DVT Risk Age: Age less than 41 years (07/17/2016 04:45:Angela Vizcarra RN) DVT Risk BMI: BMI<31 (07/17/2016 04:45:Angela Vizcarra RN) DVT Risk Surgery: None Applicable (07/17/2016 04:45:Angela Vizcarra RN) DVT Risk Other: Women Only- or (<1 month) (07/17/2016 04:45:Angela Vizcarra RN) DVT Risk Total: 1 (07/17/2016 04:45:QS system process) DVT Risk Text: Low Risk (<10%) No specific measures, early ambulation (07/17/2016 04:45:QS system process) Respiratory Effort: Unlabored; Regular Rhythm (07/17/2016 04:45:Angela Vizcarra RN) Breath Sounds, Left: Clear and Equal (07/17/2016 04:45:Angela Vizcarra RN) Breath Sounds, Right: Clear and Equal (07/17/2016 04:45:Angela Vizcarra RN) Cough Productivity: None (07/17/2016 04:45:Angela Vizcarra RN) Nausea/Vomiting: Denies (07/17/2016 04:45:Angela Vizcarra RN) Bowel Sounds: Normoactive (07/17/2016 04:45:Angela Vizcarra RN) RUQ Epigastric Pain: Denies (07/17/2016 04:45:Angela Vizcarra RN) Response to Antacids: Pain Relieved (07/17/2016 04:45:Angela Vizcarra RN) Bowel Patterns: Soft, Formed Stool (07/17/2016 04:45:Angela Vizcarra RN) Hemorrhoids: None (07/17/2016 04:45:Angela Vizcarra RN) Diet Type: Regular diet (07/17/2016 04:45:Angela Vizcarra RN) Last Meal: 07/16/2016 17:00 (07/17/2016 04:45:Angela Vizcarra RN) Bladder: Nondistended (07/17/2016 04:45:Angela Vizcarra RN) Frequency of Urination: No (07/17/2016 04:45:Angela Vizcarra RN) Urination Burning: No (07/17/2016 04:45:Anegla Vizcarra RN) CVA Tenderness: No (07/17/2016 04:45:Angela Vizcarra RN) Skin Color: Normal for Race (07/17/2016 04:45:Angela Vizcarra RN) Skin Temperature: Warm (07/17/2016 04:45:Angela Vizcarra RN) Skin Moisture: Dry (07/17/2016 04:45:Angela Vizcarra RN) Surgical Scars: none (07/17/2016 04:45:Angela Vizcarra RN) Body Piercings/Tattoos: multiple tattoos (07/17/2016 04:45:Angela Vizcarra RN) Garrick Scale Sensory Perception: No Impairment- Responds to verbal commands. Has no sensory deficit which would limit ability to feel or voice pain or discomfort (07/17/2016 04:45:Angela Vizcarra RN) Garrick Scale Moisture: Rarely Moist- Skin is usually dry. Linen only requires changing at routine intervals (07/17/2016 04:45:Angela Vizcarra RN) Garrick Scale Activity: Walks Frequently- Walks outside the room at least twice a day and inside room at least every 2 hours during the day. (07/17/2016 04:45:Angela Vizcarra RN) Garrick Scale Mobility: No Limitations- Makes major and frequent changes in position without assistance (07/17/2016 04:45:Angela Vizcarra RN) Garrick Scale Nutrition: Excellent- Eats most of every meal. Never refuses a meal. Usually eats a total of 4 or more servings of meat and dairy products. Occasionally eats between meals. Does not require supplementation (07/17/2016 04:45:Angela Vizcarra RN) Garrick Scale Friction and Shear: No Apparent Problem- Moves in bed and in chair independently and has sufficient muscle strength to lift up completely during move. Maintains good position in bed or chair at all times (07/17/2016 04:45:Angela Vizcarra RN) Garrick Scale Total: 23 (07/17/2016 04:45:QS system process) Garrick Scale Risk: No Risk of Pressure Ulcer Noted at this Time (07/17/2016 04:45:QS system process) Family Support: Significant Other supportive, at bedside frequently (07/17/2016 04:45:Angela Vizcarra RN) Emotional State: Calm/Relaxed (07/17/2016 04:45:Angela Vizcarra RN) Call [place] Within Reach: Yes (07/17/2016 04:45:Angela Vizcarra RN) Side Rails Up: Yes (07/17/2016 04:45:Angela Vizcarra RN) Bed Wheels Locked: Yes (07/17/2016 04:45:Angela Vizcarra RN) Arm Bands Present: Yes (07/17/2016 04:45:Angela Vizcarra RN) Isolation: [place] (07/17/2016 04:45:Angela Vizcarra RN) Fall Risk History of Falling: (0) No (07/17/2016 04:45:Angela Vizcarra RN) Fall Risk Secondary Diagnosis: (0) No (07/17/2016 04:45:Angela Vizcarra RN) Fall Risk Ambulatory Aid: (0) None/Bedrest/Wheelchair/Nurse Assist (07/17/2016 04:45:Angela Vizcarra RN) Fall Risk IV Therapy: (0) No (07/17/2016 04:45:Angela Vizcarra RN) Fall Risk Gait: (0) Normal/Bedrest/Immobile (07/17/2016 04:45:Angela Vizcarra RN) Fall Risk Mental Status: (0) Oriented to Own Ability (07/17/2016 04:45:Angela Vizcarra RN) Fall Risk Score: 0 (07/17/2016 04:45:QS system process) Fall Risk Score Definition: No Risk: No action required (07/17/2016 04:45:QS system process) Recent Exp Communicable Disease: No (07/17/2016 04:45:Angela Vizcarra RN) Cough or Fever: No (07/17/2016 04:45:Angela Vizcarra RN) Foreign Travel Past 10 Days: No (07/17/2016 04:45:Angela Vizcarra RN) Open Wounds or Sores: No (07/17/2016 04:45:Angela Vizcarra RN) Prior Antibiotic Resistance Tx: No (07/17/2016 04:45:Angela Vizcarra RN) Cultures Obtained: Not Applicable (07/17/2016 04:45:Angela Vizcarra RN) Isolation Initiated: No (07/17/2016 04:45:Angela Vizcarra RN) Pt/Family Education: Not Applicable (07/17/2016 04:45:Angela Vizcarra RN) FHR Baseline Rate (bpm) Baby A: 90 (07/17/2016 11:30:Elaina Deal RN) FHR Baseline Rate (bpm) Baby A: 110 (07/17/2016 11:15:Elaina Deal RN) FHR Baseline Rate (bpm) Baby A: 115 (07/17/2016 11:00:Elaina Deal RN) FHR Baseline Rate (bpm) Baby A: 120 (07/17/2016 10:45:Elaina Deal RN) FHR Baseline Rate (bpm) Baby A: 125 (07/17/2016 10:00:Elaina Deal RN) FHR Baseline Rate (bpm) Baby A: 135 (07/17/2016 09:45:Elaina Deal RN) FHR Baseline Rate (bpm) Baby A: 125 (07/17/2016 09:30:Elaina Deal RN) FHR Baseline Rate (bpm) Baby A: 140 (07/17/2016 09:15:Elaina Deal RN) FHR Baseline Rate (bpm) Baby A: 140 (07/17/2016 09:00:Elaina Deal RN) FHR Baseline Rate (bpm) Baby A: 140 (07/17/2016 08:45:Elaina Deal RN) FHR Baseline Rate (bpm) Baby A: 140 (07/17/2016 08:30:Elaina Deal RN) FHR Baseline Rate (bpm) Baby A: 140 (07/17/2016 08:15:Elaina Deal RN) FHR Baseline Rate (bpm) Baby A: 140 (07/17/2016 08:00:Elaina Deal RN) FHR Baseline Rate (bpm) Baby A: 130 (07/17/2016 07:45:Elaina Deal RN) FHR Baseline Rate (bpm) Baby A: 125 (07/17/2016 07:30:Elaina Deal RN) FHR Baseline Rate (bpm) Baby A: 130 (07/17/2016 07:15:Elaina Deal RN) FHR Baseline Rate (bpm) Baby A: 145 (07/17/2016 06:59:Angela Vizcarra RN) FHR Baseline Rate (bpm) Baby A: 135 (07/17/2016 06:45:Angela Vizcarra RN) FHR Baseline Rate (bpm) Baby A: 145 (07/17/2016 06:30:Angela Vizcarra RN) FHR Baseline Rate (bpm) Baby A: 145 (07/17/2016 06:15:Angela Vizcarra RN) FHR Baseline Rate (bpm) Baby A: 140 (07/17/2016 06:00:Angela Vizcarra RN) FHR Baseline Rate (bpm) Baby A: 135 (07/17/2016 05:30:Angela Vizcarra RN) FHR Baseline Rate (bpm) Baby A: 135 (07/17/2016 05:00:Angela Vizcarra RN) Variability Baby A: Moderate 6-25 bpm (07/17/2016 11:30:Elaina Deal RN) Variability Baby A: Moderate 6-25 bpm (07/17/2016 11:15:Elaina Deal RN) Variability Baby A: Moderate 6-25 bpm (07/17/2016 11:00:Elaina Deal RN) Variability Baby A: Moderate 6-25 bpm (07/17/2016 10:45:Elaina Deal RN) Variability Baby A: Moderate 6-25 bpm (07/17/2016 10:30:Elaina Deal RN) Variability Baby A: Moderate 6-25 bpm (07/17/2016 10:00:Elaina Deal RN) Variability Baby A: Moderate 6-25 bpm (07/17/2016 09:45:Elaina Deal RN) Variability Baby A: Moderate 6-25 bpm (07/17/2016 09:30:Elaina Deal RN) Variability Baby A: Moderate 6-25 bpm (07/17/2016 09:15:Elaina Deal RN) Variability Baby A: Moderate 6-25 bpm (07/17/2016 09:00:Elaina Deal RN) Variability Baby A: Moderate 6-25 bpm (07/17/2016 08:45:Elaina Deal RN) Variability Baby A: Moderate 6-25 bpm (07/17/2016 08:30:Elaina Deal RN) Variability Baby A: Moderate 6-25 bpm (07/17/2016 08:15:Elaina Deal RN) Variability Baby A: Moderate 6-25 bpm (07/17/2016 08:00:Elaina Deal RN) Variability Baby A: Moderate 6-25 bpm (07/17/2016 07:45:Elaina Deal RN) Variability Baby A: Moderate 6-25 bpm (07/17/2016 07:30:Elaina Deal RN) Variability Baby A: Moderate 6-25 bpm (07/17/2016 07:15:Elaina Deal RN) Variability Baby A: Moderate 6-25 bpm (07/17/2016 06:59:Angela Vizcarra RN) Variability Baby A: Moderate 6-25 bpm (07/17/2016 06:45:Angela Vizcarra RN) Variability Baby A: Moderate 6-25 bpm (07/17/2016 06:30:Angela Vizcarra RN) Variability Baby A: Moderate 6-25 bpm (07/17/2016 06:15:Angela Vizcarra RN) Variability Baby A: Moderate 6-25 bpm (07/17/2016 06:00:Angela Vizcarra RN) Variability Baby A: Moderate 6-25 bpm (07/17/2016 05:30:Angela Vizcarra RN) Variability Baby A: Moderate 6-25 bpm (07/17/2016 05:00:Angela Vizcarra RN) Accelerations Baby A: 15X15 (07/17/2016 11:30:Elaina Deal RN) Accelerations Baby A: 15X15 (07/17/2016 11:15:Elaina Deal RN) Accelerations Baby A: 15X15 (07/17/2016 11:00:Elaina Deal RN) Accelerations Baby A: 15X15 (07/17/2016 10:45:Elaina Deal RN) Accelerations Baby A: 15X15 (07/17/2016 10:30:Elaina Deal RN) Accelerations Baby A: 15X15 (07/17/2016 10:00:Elaina Deal RN) Accelerations Baby A: 15X15 (07/17/2016 09:45:Elaina Deal RN) Accelerations Baby A: 15X15 (07/17/2016 09:30:Elaina Deal RN) Accelerations Baby A: 15X15 (07/17/2016 09:15:Elaina Deal RN) Accelerations Baby A: 15X15 (07/17/2016 09:00:Elaina Deal RN) Accelerations Baby A: 15X15 (07/17/2016 08:45:Elaina Deal RN) Accelerations Baby A: 15X15 (07/17/2016 08:30:Elaina Deal RN) Accelerations Baby A: 15X15 (07/17/2016 08:15:Elaina Deal RN) Accelerations Baby A: 15X15 (07/17/2016 08:00:Elaina Dela RN) Accelerations Baby A: 15X15 (07/17/2016 07:45:Elaina Deal RN) Accelerations Baby A: 15X15 (07/17/2016 07:30:Elaina Deal RN) Accelerations Baby A: 15X15 (07/17/2016 07:15:Elaina Deal RN) Accelerations Baby A: 15X15 (07/17/2016 06:59:Angela Vizcarra RN) Accelerations Baby A: 15X15 (07/17/2016 06:45:Angela Vizcarra RN) Accelerations Baby A: 15X15 (07/17/2016 06:30:Angela Vizcarra RN) Accelerations Baby A: None (07/17/2016 06:15:Angela Vizcarra RN) Accelerations Baby A: 15X15 (07/17/2016 06:00:Angela Vizcarra RN) Accelerations Baby A: 15X15 (07/17/2016 05:30:Angela Vizcarra RN) Accelerations Baby A: 15X15 (07/17/2016 05:00:Angela Vizcarra RN) Decelerations Baby A: None (07/17/2016 11:30:Elaina Deal RN) Decelerations Baby A: None (07/17/2016 11:15:Elaina Deal RN) Decelerations Baby A: Late (07/17/2016 11:00:Elaina Deal RN) Decelerations Baby A: None (07/17/2016 10:45:Elaina Deal RN) Decelerations Baby A: Late; Variable (07/17/2016 10:30:Elaina Deal RN) Decelerations Baby A: Early (07/17/2016 10:00:Elaina Deal RN) Decelerations Baby A: None (07/17/2016 09:45:Elaina Deal RN) Decelerations Baby A: None (07/17/2016 09:30:Elaina Deal RN) Decelerations Baby A: None (07/17/2016 09:15:Elaina Deal RN) Decelerations Baby A: None (07/17/2016 09:00:Elaina Deal RN) Decelerations Baby A: None (07/17/2016 08:45:Elaina Deal RN) Decelerations Baby A: None (07/17/2016 08:30:Elaina Deal RN) Decelerations Baby A: None (07/17/2016 08:15:Elaina Deal RN) Decelerations Baby A: None (07/17/2016 08:00:Elaina Deal RN) Decelerations Baby A: None (07/17/2016 07:45:Elaina Deal RN) Decelerations Baby A: None (07/17/2016 07:30:Elaina Deal RN) Decelerations Baby A: None (07/17/2016 07:15:Elaina Deal RN) Decelerations Baby A: None (07/17/2016 06:59:Angela Vizcarra RN) Decelerations Baby A: None (07/17/2016 06:45:Angela Vizcarra RN) Decelerations Baby A: Variable (07/17/2016 06:30:Angela Vizcarra RN) Decelerations Baby A: Variable (07/17/2016 06:15:Angela Vizcarra RN) Decelerations Baby A: Early (07/17/2016 06:00:Angela Vizcarra RN) Decelerations Baby A: None (07/17/2016 05:30:Angela Vizcarra RN) Decelerations Baby A: None (07/17/2016 05:00:Angela Vizcarra RN) Assessment Flag: Admission Assessment (07/17/2016 04:45:QS system process)
[2016-07-17] MEDS: IBUPROFEN 800 MG TABLET PO SCH (21:52)
[2016-07-18] MEDS: IBUPROFEN 800 MG TABLET PO SCH ×2 (05:23→22:26)
--- NOTE | 2016-07-18 06:01 | L&D Current Admission ---
Current Admit Datetime Report Generated by CPN: 07/18/2016 06:00 ADMISSION INFORMATION Current Admit Date/Time: 07/17/2016 04:51 (07/17/2016 04:45:Angela Vizcarra RN) Reason for Admission: Rupture of Membranes (07/17/2016 04:45:Angela Vizcarra RN) Chief Complaint: Suspected Rupture of Membranes (07/17/2016 04:45:Angela Vizcarra RN) EGA per Dates: 36.3 (07/17/2016 04:45:QS system process) Method of Arrival: Wheelchair (07/17/2016 04:45:Angela Vizcarra RN) Reason for Induction: Not Applicable (07/17/2016 04:45:Angela Vizcarra RN) Records Available: Yes (07/17/2016 04:45:Angela Vizcarra RN) General Admission Information: Confirmed (07/17/2016 04:45:Angela Vizcarra RN) General Admission Reviewed By: AMANDA Parmar (07/17/2016 04:45:Angela Vizcarra RN) BELONGINGS/ADVANCED DIRECTIVES Advance Direct for Healthcare: No, but Requests Information (07/17/2016 04:45:Angela Vizcarra RN) Durable Power of Adult Basic Education Instructor: No (07/17/2016 04:45:Angela Vizcarra RN) Living Will: No (07/17/2016 04:45:Angela Vizcarra RN) Organ Donor: Yes (07/17/2016 04:45:Angela Vizcarra RN) Pt Rights Information Given: Yes (07/17/2016 04:45:Angela Vizcarra RN) Pt Understands Pt Rights: Yes (07/17/2016 04:45:Angela Vizcarra RN) Patient Rights Comments: Pt access (07/17/2016 04:45:Angela Vizcarra RN) LEARNING ASSESSMENT Knowledge Level: Understands L_D Process (07/17/2016 04:45:Angela Vizcarra RN) Barriers to Learning: None (07/17/2016 04:45:Angela Vizcarra RN) Learning Readiness: Motivated (07/17/2016 04:45:Angela Vizcarra RN) Learns Best By: 1 to 1 Instruction; Reading; Videos; Group Discussion; Demonstration (07/17/2016 04:45:Angela Vizcarra RN) DOMESTIC VIOLANCE SCREENING Dom Viol Threatened/Hurt: No (07/17/2016 04:45:Angela Vizcarra RN) Hx of Abuse/Neglect past 2yrs: No (07/17/2016 04:45:Angela Vizcarra RN) Feel Unsafe Going Home: No (07/17/2016 04:45:Angela Vizcarra RN) Addt'l Observ Indicating Abuse: No (07/17/2016 04:45:Angela Vizcarra RN) Reason Unable to Complete Screen: N/A, Screen Completed (07/17/2016 04:45:Angela Vizcarra RN) Considered Personal Harm/Suicide: No (07/17/2016 04:45:Angela Vizcarra RN) NUTRITIONAL/FUNCTIONAL SCREENING Problem with Appetite >5 Days: No (07/17/2016 04:45:Angela Vizcarra RN) Chew/Swallow Difficulties: No (07/17/2016 04:45:Angela Vizcarra RN) Inappropriate Wt Gain/Loss: No (07/17/2016 04:45:Angela Vizcarra RN) Presence Skin Breakdown/Ulcer: No (07/17/2016 04:45:Angela Vizcarra RN) Special Diet: No (07/17/2016 04:45:Angela Vizcarra RN) Pt Requests Articulation Officer Visit: No (07/17/2016 04:45:Angela Vizcarra RN) Hx of Any of the Following?: N/A (07/17/2016 04:45:Angela Vizcarra RN) New Diagnosis of: N/A (07/17/2016 04:45:Angela Vizcarra RN) Requires Assist w/Ambulation: No (07/17/2016 04:45:Angela Vizcarra RN) Uses Assist Device to Ambulate: No (07/17/2016 04:45:Angela Vizcarra RN) Pt Requires Help w/ADL's: No (07/17/2016 04:45:Angela Vizcarra RN)
--- NOTE | 2016-07-18 06:01 | L&D General Admission ---
General Admit Datetime Report Generated by N: 07/18/2016 06:00 INFORMATION Patient Age: 40 (07/15/2016 14:21:QS system process) EDC: 08/11/2016 00:00 (Annotations: Data stored by [facility] on behalf of user) (07/17/2016 04:13:Angela Vizcarra RN) : 4 (07/17/2016 04:13:Angela Vizcarra RN) Para: 2 (07/17/2016 04:13:Bere Sneed RN) Term: 2 (07/17/2016 04:13:Bere Sneed RN) : 0 (07/17/2016 04:13:Bere Sneed RN) Spontaneous Abortions: 1 (07/17/2016 04:13:Angela Vizcarra RN) Induced Abortions: 0 (07/17/2016 04:13:Angela Vizcarra RN) Livin (07/17/2016 04:13:Angela Vizcarra RN) Cesareans: 0 (07/17/2016 04:13:Angela Vizcarra RN) VBACs: 0 (07/17/2016 04:13:Angela Vizcarra RN) Ectopic: 0 (07/17/2016 04:13:Angela Vizcarra RN) Multiple Births: 0 (07/17/2016 04:13:Angela Vizcarra RN) Baby, Number in Womb: 1 (07/17/2016 04:13:Angela Vizcarra RN) CARE Primary Dermatology Technician: [facility] (07/17/2016 04:13:Angela Vizcarra RN) Month of 1st Visit: 2015 (07/17/2016 04:13:Angela Vizcarra RN) Adequate Care: Yes (07/17/2016 04:13:Bere Sneed RN) Prepregnancy Weight (lb): 113 (07/17/2016 04:13:Bere Sneed RN) Prepregnancy Weight (kg): 51.4 (07/17/2016 04:13:QS system process) Height (in): 64 (07/17/2016 14:24:QS system process) ALLERGIES Medication Allergy: Yes (07/17/2016 04:13:Bere Sneed RN) Medication Allergies: No Known Allergies (07/17/2016) (07/17/2016 04:18:QS system process) COMMUNICATION Primary Language: Chilean (07/17/2016 04:13:Angela Vizcarra RN) Medical Tx Preferred Language: Chilean (07/17/2016 04:13:Angela Vizcarra RN) Chilean Communication Ability: Speaks Chilean; Reads Chilean (07/17/2016 04:13:Angela Vizcarra RN) Communication Barrier(s): None (07/17/2016 04:13:Angela Vizcarra RN) DEMOGRAPHICS Address: [address] [place] [id number] (07/15/2016 14:21:QS system process) Zipcode: [address] (07/15/2016 14:21:QS system process) Home (07/15/2016 14:21:QS system process) N: [id number] (07/15/2016 14:21:QS system process) Next of Kin Name: CHRISTIN HERNANDEZ (07/15/2016 14:21:QS system process) Next of Kin (07/15/2016 14:21:QS system process) Next of Kin Relationship: (07/15/2016 14:21:QS system process) Date of : 1975 (07/15/2016 14:21:QS system process) Marital Status: (07/15/2016 14:21:QS system process) Sex: Female (07/15/2016 14:21:QS system process) Race: (07/15/2016 14:21:QS system process) Ethnicity: Non- or (07/15/2016 14:21:QS system process) Zoroastrian: Confucianism (07/15/2016 14:21:QS system process) DRUG AND ALCOHOL USE Alcohol: No (07/17/2016 04:13:Angela Vizcarra RN) Cigarettes: Current Everyday Smoker. [id number] (07/17/2016 04:13:Angela Vizcarra RN) Average Cigarettes Smoked: > 10 per day (07/17/2016 04:13:Angela Vizcarra RN) Advised to Stop Smoking: No (07/17/2016 04:13:Angela Vizcarra RN) Cigarette Comments: 1 ppd (07/17/2016 04:13:Angela Vizcarra RN) Marijuana: No (07/17/2016 04:13:Angela Vizcarra RN) Cocaine: No (07/17/2016 04:13:Angela Vizcarra RN) Other Illicit Drugs: No (07/17/2016 04:13:Angela Vizcarra RN) VACCINE HISTORY Influenza Vaccine: No (07/17/2016 04:13:Angela Vizcarra RN) Pneumococcal Vaccine: No (07/17/2016 04:13:Angela Vizcarra RN) Tetanus Vaccine: Uncertain (07/17/2016 04:13:Angela Vizcarra RN) Tdap Vaccine: Yes (07/17/2016 04:13:Angela Vizcarra RN) Hepatitis B Vaccine: Yes (07/17/2016 04:13:Angela Vizcarra RN) Continuous Improvement Specialist: [facility] [employer] (07/17/2016 04:13:Angela Vizcarra RN) Feeding Preference: Breast (07/17/2016 04:13:Angela Vizcarra RN) Benefit of Breast Feed Discussed: Yes (07/17/2016 04:13:Angela Vizcarra RN) Circumcision: Yes (07/17/2016 04:13:Angela Vizcarra RN) Tubal Ligation: No (07/17/2016 04:13:Angela Vizcarra RN) Tubal Authorization Signed: N/A (07/17/2016 04:13:Angela Vizcarra RN) Consent: N/A (07/17/2016 04:13:Angela Vizcarra RN) Consent Signed: N/A (07/17/2016 04:13:Angela Vizcarra RN) Pain Management Plans: Epidural (07/17/2016 04:13:Angela Vizcarra RN) Plans for Labor and Delivery: None (07/17/2016 04:13:Angela Vizcarra RN) Support Person: Tito Fox (07/17/2016 04:13:Angela Vizcarra RN) Support Person Relationship: Significant Other (07/17/2016 04:13:Angela Vizcarra RN) Cultural/Spritual Practice: No (07/17/2016 04:13:Angela Vizcarra RN) Spir/Cult Dietary Needs: No (07/17/2016 04:13:Angela Vizcarra RN) LIVING SITUATION/DISCHARGE PLAN Living Arrangements: Apartment (07/17/2016 04:13:Angela Vizcarra RN) Adequate Access to:: Electric; Heat; Refrigeration; Plumbing/Running water; Phone; Transportation (07/17/2016 04:13:Angela Vizcarra RN) WIC Program: Yes (07/17/2016 04:13:Angela Vizcarra RN) Discharge Salsa Dance Instructor Person: Tito (07/17/2016 04:13:Angela Vizcarra RN) Person to Help after Discharge: gina (07/17/2016 04:13:Angela Vizcarra RN) Currently Using Commun Resources: Yes (07/17/2016 04:13:Angela Vizcarra RN) Specify Current Resource Used: Medicaid; food stamps (07/17/2016 04:13:Angela Vizcarra RN) Car Seat for Discharge: Yes (07/17/2016 04:13:Angela Vizcarra RN) Adoption Requested: No (07/17/2016 04:13:Angela Vizcarra RN) Pt Contact w/infant Post : N/A (07/17/2016 04:13:Angela Vizcarra RN) LABS Blood Type: A Positive (07/17/2016 04:13:Bere Sneed RN) Antibody Screen: Negative (07/17/2016 04:13:Bere Sneed RN) Rho(G) this : Not Applicable (07/17/2016 04:13:Bere Sneed RN) Hemoglobin: 10.0 L (07/17/2016 05:04:QS system process) Hematocrit: 29.1 L (07/17/2016 05:04:QS system process) MCV: 88 (07/17/2016 05:04:QS system process) Group Beta Strep: Unknown (07/17/2016 04:13:Bere Sneed RN) RPR/VDRL: Nonreactive (07/17/2016 04:13:Bere Sneed RN) HIV Results: Negative (07/17/2016 04:13:Bere Sneed RN) Hepatitis B: Negative (07/17/2016 04:13:Bere Sneed RN) Rubella: Immune (07/17/2016 04:13:Bere Sneed RN) OB/PREVIOUS HISTORY Previous Procedures: Ultrasound (07/17/2016 04:13:Bere Sneed RN) Current Procedures: Ultrasound (07/17/2016 04:13:Angela Vizcarra RN) History of Previous : No (07/17/2016 04:13:Angela Vizcarra RN) History of Gestational Diabetes: Yes (07/17/2016 04:13:Angela Vizcarra RN) History of PIH: No (07/17/2016 04:13:Angela Vizcarra RN) History of Incompetent Cervix: No (07/17/2016 04:13:Angela Vizcarra RN) History of Placenta Previa/Abrup: No (07/17/2016 04:13:Angela Vizcarra RN) History of Macrosomia: No (07/17/2016 04:13:Angela Vizcarra RN) History of IUGR: No (07/17/2016 04:13:Angela Vizcarra RN) History of Hemorrhage: No (07/17/2016 04:13:Angela Vizcarra RN) History of Loss/Stillborn: No (07/17/2016 04:13:Angela Vizcarra RN) History of : No (07/17/2016 04:13:Angela Vizcarra RN) History of D (Rh) Sensitization: No (07/17/2016 04:13:Angela Vizcarra RN) History Recurrent Loss/Stillborn: No (07/17/2016 04:13:Angela Vizcarra RN) History Depression/PP Depression: No (07/17/2016 04:13:Angela Vizcarra RN) History of Uterine Anomaly/NANO: No (07/17/2016 04:13:Angela Vizcarra RN) History of Infertility: No (07/17/2016 04:13:Angela Vizcarra RN) History of ART Treatment: No (07/17/2016 04:13:Angela Vizcarra RN) History of NANO: No (07/17/2016 04:13:Angela Vizcarra RN) MEDICAL HISTORY Diabetes Type: Gestational Diabetes (07/17/2016 04:13:Angela Vizcarra RN) Med Hx Hypertension: No (07/17/2016 04:13:Angela Vizcarra RN) Med Hx Heart Disease: No (07/17/2016 04:13:Angela Vizcarra RN) Med Hx Autoimmune Disorder: No (07/17/2016 04:13:Angela Vizcarra RN) Med Hx Kidney Disease/UTI: No (07/17/2016 04:13:Angela Vizcarra RN) Med Hx Neurologic/Epilepsy: No (07/17/2016 04:13:Angela Vizcarra RN) Med Hx Psychiatric Disorders: No (07/17/2016 04:13:Angela Vizcarra RN) Med Hx Hepatitis/Liver Disease: No (07/17/2016 04:13:Angela Vizcarra RN) Med Hx Varicosities/Phlebitis: No (07/17/2016 04:13:Angela Vizcarra RN) Med Hx Thyroid Dysfunction: No (07/17/2016 04:13:Angela Vizcarra RN) Med Hx Trauma/Violence: No (07/17/2016 04:13:Angela Vizcarra RN) Med Hx Blood Transfusion: No (07/17/2016 04:13:Angela Vizcarra RN) Med Hx Pulmonary (Asthma,TB): No (07/17/2016 04:13:Angela Vizcarra RN) Med Hx Breast: No (07/17/2016 04:13:Angela Vizcarra RN) Med Hx PRISON LIBRARIAN Surgery: No (07/17/2016 04:13:Angela Vizcarra RN) Med Hx Hospitalization/Surgery: Yes (07/17/2016 04:13:Angela Vizcarra RN) Med Hx Anesthetic Complications: No (07/17/2016 04:13:Angela Vizcarra RN) Med Hx Abnormal Pap Smear: No (07/17/2016 04:13:Angela Vizcarra RN) Other Medical Diseases: No (07/17/2016 04:13:Angela Vizcarra RN) Med Hx Significant Family Hx: No (07/17/2016 04:13:Angela Vizcarra RN) INFECTIOUS HISTORY Inf Hx Gonorrhea: No (07/17/2016 04:13:Angela Vizcarra RN) Inf Hx Chlamydia: No (07/17/2016 04:13:Angela Vizcarra RN) Inf Hx Syphilis: No (07/17/2016 04:13:Angela Vizcarra RN) Inf Hx HIV/AIDS: No (07/17/2016 04:13:Angela Vizcarra RN) Inf Hx Human Papilloma Virus: No (07/17/2016 04:13:Angela Viczarra RN) Inf Hx Pt/Partner Genital Herpes: No (07/17/2016 04:13:Angela Vizcarra RN) Inf Hx Tuberculosis/Exposure: No (07/17/2016 04:13:Angela Vizcarra RN) Inf Hx Hepatitis B,C: No (07/17/2016 04:13:Angela Vizcarra RN) Inf Hx Rash or Viral Illness: No (07/17/2016 04:13:Angela Vizcarra RN) GENETIC HISTORY Gen Hx Age >=35 at CUONG: No (07/17/2016 04:13:Angela Vizcarra RN) Gen Hx Thalassemia: No (07/17/2016 04:13:Angela Vizcarra RN) Gen Hx Congenital Heart Defect: No (07/17/2016 04:13:Angela Vizcarra RN) Gen Hx Neural Tube Defect: No (07/17/2016 04:13:Angela Vizcarra RN) Gen Hx Down's Syndrome: No (07/17/2016 04:13:Angela Vizcarra RN) Gen Hx Rafael-Sachs: No (07/17/2016 04:13:Angela Vizcarra RN) Gen Hx Sundar: No (07/17/2016 04:13:Angela Vizcarra RN) Gen Hx Familial Dysautonomia: No (07/17/2016 04:13:Angela Vizcarra RN) Gen Hx Sickle Cell Disease/Trait: No (07/17/2016 04:13:Angela Vizcarra RN) Gen Hx Cystic Fibrosis: No (07/17/2016 04:13:Angela Vizcarra RN) Gen Hx Huntingtons Chorea: No (07/17/2016 04:13:Angela Vizcarra RN) Gen Hx Mental Retardation/Autism: No (07/17/2016 04:13:Angela Vizcarra RN) Gen Hx Tested for Fragile X: No (07/17/2016 04:13:Angela Vizcarra RN) Gen Hx Other Inher/Chromosomal: No (07/17/2016 04:13:Angela Vizcarra RN) Gen Hx Maternal Metabolic DO: No (07/17/2016 04:13:Angela Vizcarra RN) Gen Hx Pt Father or FOB Defect: No (07/17/2016 04:13:Angela Vizcarra RN) Gen Hx Other Genetic History: No (07/17/2016 04:13:Angela Vizcarra RN) Gen Hx Drugs/Meds since LMP: Yes (07/17/2016 04:13:Angela Vizcarra RN) Gen Hx Medications: prenatals and iron (07/17/2016 04:13:Angela Vizcarra RN)
--- NOTE | 2016-07-18 06:15 | L&D Care Plan ---
LD CARE PLANS Datetime Report Generated by CPN: 07/18/2016 06:15 Datetime: 07/17/2016 04:38 Pain State: Risk For (Tracy Sánchez RN) Related To: Labor and Delivery Process; Surgical Procedure (Tracy Sánchez RN) Goal(s): Patients Pain will be Assessed and Managed; Patient will Verbalize Adequate Relief of Pain or the Ability to [place] with Current Pain (Tracy Sánchez RN) Interventions: Assess Pain Severity on Scale of 0 (None) to 5 (Severe); Assess Type, Location and Intensity of Pain Each Time Client Reports Discomfort and Notify Provider if Unusal Pain Develops; Encourage Proper Breathing and Relaxation Techniques; Offer Alternatives Such as Repositioning, Calm Environment, Massages, Diversional Activities, Ice Pack, Splinting, and Ambulation; Administer Analgesics as Ordered; Assist with Epidural Placement as Appropriate; Evaluate Therapeutic Effectiveness of Medication and Treatments (Tracy Sánchez RN) Outcome: Patient will Report Absence or Relief of Pain Consistent with Established Pain Goal (Tracy Sánchez RN) Status: Ongoing (Tracy Sánchez RN) Outcome: Patient will have a Decrease in Signs and Symptoms of Discomfort (Tracy Sánchez RN) Status: Ongoing (Tracy Sánchez RN) Outcome: Pain will be Controlled During Procedures (Tracy Sánchez RN) Status: Ongoing (Tracy Sánchez RN) Anxiety State: Risk For (Tracy Sánchez RN) Related To: Labor and Delivery Process; Surgical Procedure (Tracy Sánchez RN) Goal(s): Patient will have Decreased Anxiety and be able to Function at Acceptable Levels (Tracy Sánchez RN) Interventions: Assess Verbal and Nonverbal Behavioral Indicators of Anxiety; Assist Patient to Identify and Verbalize Symptoms of Anxiety; Identify and Demonstrate Techniques to Control Anxiety; Assist Patient with Coping Mechanisms to Manage Anxiety; Provide Theraputic Touch for the Patient; Explain to Patient, Using a Calm Reassuring Approach and Nonmedical Terms, All Activities, Procedures, and Concerns; Instruct Patient and Family about Post Discharge Care, Limitations, Symptoms to Report and Resources Available (Tracy Sánchez RN) Outcome: Patient will Identify, Verbalize and Demonstrate Techniques to Control Anxiety (Tracy Sánchez RN) Status: Ongoing (Tracy Sánchez RN) Outcome: Patient's Posture, Facial Expressions, Gestures and Activity Level will Reflect Decreased Anxiety (Tracy Sánchez RN) Status: Ongoing (Tracy Sánchez RN) Outcome: Patient will Verbalize a Sense of Control and/or Acceptance of the Situation (Tracy Sánchez RN) Status: Ongoing (Tracy Sánchez RN) Outcome: Patient will Identify and Utilize Support Person (Tracy Sánchez RN) Status: Ongoing (Tracy Sánchez RN) Knowledge Deficit State: Risk For (Tracy Sánchez RN) Related To: Labor and Delivery Process; Surgical Procedures (Tracy Sánchez RN) Goal(s): Patient will Accurately Verbalize Understanding of Plan of Care and Treatment; Patient and Family will Accurately Verbalize Understanding of the Disease Process (Tracy Sánchez RN) Interventions: Assess Motivation and Willingness of Patient/Family to Learn; Assess Preferred Learning Mode: One to One Instruction, Reading, Videos, Group Discussion or Demonstration; Assess Barriers to Learning: Pain, Emotional State, Language Barrier, Cognitive Impairment, Visual or Hearing Deficits; Assess Patient and Family Knowledge of Disease Process, Medications and Treatment; Discuss Therapy and/or Treatment Options, Describe Rationale Behind Management, Therapy and Treatment Recommendations; Instruct Patient and Family on Signs and Symptoms to Report; Instruct Patient and Family on Medication Effects and Side Effects; Provide Appropriate and Timely Education Using Multiple Techniques; Provide Patient and Family with Support Group Information and Resources; Give Clear and Thorough Explanations and Demonstrations (Tracy Sánchez RN) Outcome: Patient and Family will Verbalize Understanding of Condition, Treatment and Signs and Symptoms to Report (Tracy Sánchez RN) Status: Ongoing (Tracy Sánchez RN) Outcome: Patient will Identify Perceived Learning Needs and Express Motivation to Learn (Tracy Field, RN) Status: Ongoing (Tracy Sánchez RN) Outcome: Patient will Verbalize Understanding of Desired Content, and/or Performs Desired Skill Prior to Discharge (Tracy Sánchez RN) Status: Ongoing (Tracy Sánchez RN) Infection State: Risk For (Tracy Sánchez RN) Related To: Surgical Procedures; Prolonged Labor or Induction; Premature/Prolonged Rupture of Membranes (Tracy Sánchez RN) Goal(s): The Patient will be Free of Infection, Vital Signs Stable and Lab Work within Normal Parameters (Tracy Sánchez RN) Interventions: Instruct and Reinforce Proper Handwashing, Hygiene, and Care Techniques to Patient and Family; Monitor Vital Signs; Monitor Patient for the Following Signs of Infection: Fever, Abdominal Tenderness, Unusual Discharge; Monitor Aminiotic Fluid, Urine and Lochia for Color and Odor; Observe Wounds, Incisions and Invasive Line Sites for Redness, Drainage and Edema; Assess IV Sites per Hospital Policy; Monitor Lab and Test Results and Notify Provider of Abnormal Findings; Assess Nutritional Status and Promote Good Nutrition (Tracy Sánchez RN) Outcome: Patient will Remain Free of Infection (Tracy Sánchez RN) Status: Ongoing (Tracy Sánchez RN) Outcome: Infection will be Recognized Early to Allow for Prompt Treatment (Tracy Sánchez RN) Status: Ongoing (Tracy Sánchez RN) Outcome: Patient will have Vital Signs Within Expected Range (Tracy Sánchez RN) Status: Ongoing (Tracy Sánchez RN) Fluid Volume State: Risk For (Tracy Sánchez RN) Related To: Surgical Procedures (Tracy Sánchez RN) Goal(s): Patient will Achieve and Maintain a Balanced Fluid Volume Status; Hemodynamically Stable (Tracy Sánchez RN) Interventions: Monitor Vital Signs; Auscultate Breath Sounds; Monitor Patient for Skin Turgor, Mucous Membranes, Dry Skin, Weakness, Headaches and Confusion; Provide Oral Fluids as Ordered; Initiate and Maintain Intravenous Fluids as Ordered; Monitor Intake and Output as Indicated Per Patient Status; Accurately Measure Blood Loss; Monitor Lab and Test Results as Obtained and Notify Provider of Abnormal Findings; Monitor Patient's Weight (Tracy Sánchez RN) Outcome: Patient will have Clear Lung Sounds (Tracy Sánchez RN) Status: Ongoing (Tracy Sánchez RN) Outcome: Patient will have Vital Signs within Expected Range (Tracy Sánchez RN) Status: Ongoing (Tracy Sánchez RN) Outcome: Urine Output will be within Expected Range (Tracy Sánchez, RN) Status: Ongoing (Tracy Sánchez RN) Outcome: Patient will have Minimal Generalized or Upper Extremity Edema (Tracy Sánchez RN) Status: Ongoing (Tracy Sánchez RN) Injury State: Risk For (Tracy Sánchez RN) Related To: Labor and Delivery Process; Anesthesia (Tracy Sánchez RN) Goal(s): Patient will Remain Free from Injury (Tracy Sánchez RN) Interventions: Monitoring as per Hospital Protocol; Assess Neurological Status; Perform Risk Assessment of Patients with Induction and ; Perform Fall Risk Assessment and Prevention per Hospital Protocol; Perform DVT Risk Assessment and Prophylaxis per Hospital Protocol; Ensure that Oxygen, Suction, and Resuscitation Medications and Equipment are Readily Available; Confirm Patient ID Prior to Procedure(s) and Medication Administration per Hospital Policy (Tracy Sánchez RN) Outcome: Successful Fall Risk Prevention (Tracy Sánchez RN) Status: Ongoing (Tracy Sánchez RN) Outcome: Patient will Deliver without Adverse [place] (Tracy Sánchez RN) Status: Ongoing (Tracy Sánchez RN) Outcome: Patient's Neurological Status will Remain Stable (Tracy Sánchez RN) Status: Ongoing (Tracy Sánchez RN) Impaired Skin Integrity State: Risk For (Tracy Sánchez RN) Related To: Vaginal Delivery; Surgical Procedures (Tarcy Sánchez RN) Goal(s): Patient will Maintain Optimal Skin Integrity, Free of Breakdown, Injury or Infection (Tracy Sánchez RN) Interventions: Complete Screening for Pressure Ulcer Risk and Initiate Protocol per Hospital Policy; Monitor Site of Skin Impairment for Color Changes, Redness, Swelling, Warmth, Pain or Other Signs of Infection; Encourage and Assist with Position Changes; Monitor Patient's Mobility Status; Provide Adequate Nutrition and Fluids; Teach Patient Appropriate Hygienic Care; Teach Patient/Family Skin Care Management (Tracy Sánchez RN) Outcome: Patient will not have Evidence of Injury Such as Skin Breakdown, Scrapes, Cuts, or Bruising (Tracy Sánchez RN) Status: Ongoing (Tracy Sánchez RN) Outcome: Patient will Report Any Altered Sensation or Pain at Site of Skin Impairment (Tracy Sánchez RN) Status: Ongoing (Tracy Sánchez, ) Outcome: Patients Incisions and Wounds will be without Signs or Symptoms of Infection (Tracy Sánchez, ) Status: Ongoing (Tracygigi Sánchez, ) Outcome: Patient will Demonstrate Understanding of Plan to Heal Skin and Prevent Reinjury and Verbalize Risk Factors (Tracy Sánchez, ) Status: Ongoing (Tracy Sánchez, ) Parenting Impaired State: Not Applicable (Tracy Sánchez, ) Nutrition State[facility] Grieving State: Not Applicable (Tracy Sánchez, RN) Additional Care Plan State: Not Applicable Samreen Sánchez RN)
[2016-07-18 06:57] LABS: HEMATOCRIT 25.8 % (36.0-47.0); HEMOGLOBIN 8.9 g/dL (12.0-15.5); HGB HCT DIFFERENCE 0.9; MEAN CORPUSCULAR HEMOGLOBIN 30.3 pg (27.0-33.4); MEAN CORPUSCULAR HGB CONC 34.7 g/dL (32.0-36.0); MEAN CORPUSCULAR VOLUME 87 fl (80-97); RED BLOOD COUNT 2.96 10^6/uL (3.72-5.28); RED CELL DISTRIBUTION WIDTH 13.3 % (11.5-14.0); WHITE BLOOD COUNT 11.6 10^3/uL (4.0-10.5)
[2016-07-18] MEDS ORDERED: ACETAMINOPHEN WITH CODEINE #3 TABLET PO PRN ×2 (09:30)
--- NOTE | 2016-07-18 09:46 | PDOC PROGRESS REPORT ---
Subjective-OB Subjective: Post Delivery Day: 40 year old. Denies any needs at this time. Denies any use of marijuana. Physical Exam (OB) Vital Signs: Temp Pulse Resp BP Pulse Ox 98.1 F 63 18 129/89 H 100 07/18/16 08:00 07/18/16 08:00 07/18/16 08:00 07/18/16 08:00 07/18/16 08:00 Intake & Output 07/17/16 07/18/16 07/19/16 06:59 06:59 06:59 Weight 59.85 kg - Lochia Lochia Amount: Scant < 10 ml Lochia Color: Rubra/Red - Abdomen Description: Soft, Round Hernia Present: No Bowel Sounds: Normoactive Flatus Presence: Present Stool: Yes Fundal Description: Firm, Midline Describe if Not Midline: up and to the right. Fundal Height: u/u - u/2 Objective-Diagnostic Laboratory: 07/18/16 06:42 07/18/16 06:42 WBC 11.6 H RBC 2.96 L Hgb 8.9 L Hct 25.8 L MCV 87 MCH 30.3 MCHC 34.7 RDW 13.3 Plt Count 234
[2016-07-18] MEDS ORDERED: PRENATAL VITAMIN W-O CA NO5/FE FUMARATE/FA CAPSULE PO SCH (10:00)
[2016-07-18] MEDS ORDERED: SENNOSIDES/DOCUSATE 8.6-50 MG 1 EACH TABLET PO SCH (10:00)
[2016-07-18] MEDS: FERROUS SULFATE 325 MG TABLET PO SCH (18:10)
[2016-07-18] MEDS: DOCUSATE SODIUM 100 MG CAPSULE PO SCH (18:10)
[2016-07-19] MEDS: IBUPROFEN 800 MG TABLET PO SCH ×2 (06:05→14:20)
--- NOTE | 2016-07-19 08:22 | PDOC DISCHARGE SUMMARY ---
Final Diagnosis Discharge Date: 07/19/16 - Final Diagnosis (1) delivery (maternal condition) Is this a current diagnosis for this admission?: Yes (2) AMA (advanced maternal age) multigravida 35+ Is this a current diagnosis for this admission?: Yes (3) Delivery normal Is this a current diagnosis for this admission?: Yes (4) GDM (gestational diabetes mellitus) Is this a current diagnosis for this admission?: Yes Discharge Data - Discharge Medication Home Medications: Ferrous Sulfate [Iron] 325 mg PO BID 07/17/16 Glyburide [Diabeta 2.5 mg Tablet] 1 tab PO QHS 07/17/16 Vit #76/Iron,Carb/FA [Prenatabs Rx Tablet] 1 tab PO DAILY 07/17/16 Reason(s) for Admission: Onset of Labor Procedures: NST Intrapartum Procedure(s): Spontaneous Vaginal Delivery - Diagnosis Test Laboratory: Temp Pulse Resp BP Pulse Ox 98.2 F 88 16 121/88 H 98 07/18/16 19:45 07/18/16 19:45 07/18/16 19:45 07/18/16 19:45 07/18/16 19:45 07/17/16 07/17/16 07/18/16 04:15 05:04 06:42 RBC 3.30 L 2.96 L Hgb 10.0 L 8.9 L Hct 29.1 L 25.8 L Urine Opiates Screen NEGATIVE - Discharge information/Instructions Discharge Activity: Activity As Tolerated, No Lifting Over 10 Pounds, Pelvic Rest, No tub bath Discharge Diet: Regular Disposition: HOME, SELF-CARE Follow up with: [facility] in: 4, Weeks
[2016-07-19] MEDS: FERROUS SULFATE 325 MG TABLET PO SCH ×2 (09:26→17:23)
[2016-07-19] MEDS: DOCUSATE SODIUM 100 MG CAPSULE PO SCH ×2 (09:26→17:23)
[2016-07-19 14:25] VITALS: BP 129/89
--- NOTE | 2016-07-21 23:40 | L&D Discharge Summary ---
OB Discharge Summary Datetime Report Generated by CPN: 07/21/2016 23:40 DISCHARGE DIAGNOSIS Gestation: 36.3 Number of Babies in Womb: 1 Parity: 2
--- NOTE | 2016-08-19 16:10 | Admission Physical ---
Datetime Report Generated by CPN: 08/19/2016 16:09 ALLERGIES Medication Allergies: Yes Medication Allergies: No Known Allergies (07/17/2016) OBSTETRICAL HISTORY EDC: 08/11/2016 00:00 (Annotations: Data stored by [facility] on behalf of user) : 4 Para: 2 Term: 2 : 0 SAB: 1 SAB: 0 IAB: 0 IAB: 0 Ectopic: 0 Ectopic: 0 Livin Livin Cesareans: 0 Cesareans: 0 VBACs: 0 VBACs: 0 Multiple Births: 0 Multiple Births: 0 Gestational Diabetes: Yes Rh Sensitization: No Incompetent Cervix: No NANO: No Infertility: No ART Treatment: No Uterine Anomaly: No IUGR: No Hx Previous C/S: No Macrosomia: No Hx Loss/Stillborn: No PIH: No Hx : No Placenta Previa/Abruption: No Depression/PP Depression: No PTL/PROM: No Post Hemorrhage: No Current Procedures: Ultrasound SEE RECORDS Alcohol: No Marijuana : No Cocaine: No Other Illicit Drugs: No Cigarettes: Current Everyday Smoker. 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 Surgery: No Heart Disease: No Hosp/Surgery: Yes Autoimmune Disorder: No Anesthetic Complications: No Kidney Disease: No Abnormal Pap Smear: No Neuro/Epilepsy: No Psychiatric Disorders: No Other Medical Diseases: No Hepatitis/Liver Disease: No Significant Family History: No Varicosities/Phlebitis: No Trauma/Violence : No Thyroid Dysfunction: No INFECTIOUS HISTORY Gonorrhea: No Genital Herpes: No Chlamydia: No Tuberculosis: No Syphilis: No Hepatitis: No HIV/AIDS Exposure: No Rash or Viral Illness: No HPV: No VAGINAL EXAM Dilatation: 3 Effacement: 80 Station: 0 MEMBRANES Membranes: Ruptured Amniotic Fluid Color: Clear PLANS FOR LABOR AND DELIVERY Labor and Delivery: None Pain Management: Epidural Feeding Preference: Breast Benefit of Breast Feed Discussed: Yes Circumcision: Yes INFORMED CONSENT Informed Consent Obtained: Vaginal Delivery; Risks, Benefits and Alternatives Discussed
--- NOTE | 2016-08-19 16:11 | Admission Physical ---
Datetime Report Generated by N: 08/19/2016 16:11 ALLERGIES Medication Allergies: Yes Medication Allergies: No Known Allergies (07/17/2016) OBSTETRICAL HISTORY EDC: 08/11/2016 00:00 (Annotations: Data stored by [facility] on behalf of user) : 4 Para: 2 Term: 2 : 0 SAB: 1 SAB: 0 IAB: 0 IAB: 0 Ectopic: 0 Ectopic: 0 Livin Livin Cesareans: 0 Cesareans: 0 VBACs: 0 VBACs: 0 Multiple Births: 0 Multiple Births: 0 Gestational Diabetes: Yes Rh Sensitization: No Incompetent Cervix: No NANO: No Infertility: No ART Treatment: No Uterine Anomaly: No IUGR: No Hx Previous C/S: No Macrosomia: No Hx Loss/Stillborn: No PIH: No Hx : No Placenta Previa/Abruption: No Depression/PP Depression: No PTL/PROM: No Post Hemorrhage: No Current Procedures: Ultrasound SEE RECORDS Alcohol: No Marijuana : No Cocaine: No Other Illicit Drugs: No Cigarettes: Current Everyday Smoker. 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: No Heart Disease: No Hosp/Surgery: Yes Autoimmune Disorder: No Anesthetic Complications: No Kidney Disease: No Abnormal Pap Smear: No Neuro/Epilepsy: No Psychiatric Disorders: No Other Medical Diseases: No Hepatitis/Liver Disease: No Significant Family History: No Varicosities/Phlebitis: No Trauma/Violence : No Thyroid Dysfunction: No INFECTIOUS HISTORY Gonorrhea: No Genital Herpes: No Chlamydia: No Tuberculosis: No Syphilis: No Hepatitis: No HIV/AIDS Exposure: No Rash or Viral Illness: No HPV: No VAGINAL EXAM Dilatation: 3 Effacement: 80 Station: 0 MEMBRANES Membranes: Ruptured Amniotic Fluid Color: Clear PLANS FOR LABOR AND DELIVERY Labor and Delivery: None Pain Management: Epidural Feeding Preference: Breast Benefit of Breast Feed Discussed: Yes Circumcision: Yes INFORMED CONSENT Informed Consent Obtained: Vaginal Delivery; Risks, Benefits and Alternatives Discussed
--- NOTE | 2016-08-19 16:21 | Admission Physical ---
Datetime Report Generated by N: 08/19/2016 16:20 ALLERGIES Medication Allergies: Yes Medication Allergies: No Known Allergies (07/17/2016) OBSTETRICAL HISTORY EDC: 08/11/2016 00:00 (Annotations: Data stored by [facility] on behalf of user) : 4 Para: 2 Term: 2 : 0 SAB: 1 SAB: 0 IAB: 0 IAB: 0 Ectopic: 0 Ectopic: 0 Livin Livin Cesareans: 0 Cesareans: 0 VBACs: 0 VBACs: 0 Multiple Births: 0 Multiple Births: 0 Gestational Diabetes: Yes Rh Sensitization: No Incompetent Cervix: No NANO: No Infertility: No ART Treatment: No Uterine Anomaly: No IUGR: No Hx Previous C/S: No Macrosomia: No Hx Loss/Stillborn: No PIH: No Hx : No Placenta Previa/Abruption: No Depression/PP Depression: No PTL/PROM: No Post Hemorrhage: No Current Procedures: Ultrasound SEE RECORDS Alcohol: No Marijuana : No Cocaine: No Other Illicit Drugs: No Cigarettes: Current Everyday Smoker. 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 Heart Disease: No Hosp/Surgery: Yes Autoimmune Disorder: No Anesthetic Complications: No Kidney Disease: No Abnormal Pap Smear: No Neuro/Epilepsy: No Psychiatric Disorders: No Other Medical Diseases: No Hepatitis/Liver Disease: No Significant Family History: No Varicosities/Phlebitis: No Trauma/Violence : No Thyroid Dysfunction: No INFECTIOUS HISTORY Gonorrhea: No Genital Herpes: No Chlamydia: No Tuberculosis: No Syphilis: No Hepatitis: No HIV/AIDS Exposure: No Rash or Viral Illness: No HPV: No VAGINAL EXAM Dilatation: 3 Effacement: 80 Station: 0 MEMBRANES Membranes: Ruptured Amniotic Fluid Color: Clear PLANS FOR LABOR AND DELIVERY Labor and Delivery: None Pain Management: Epidural Feeding Preference: Breast Benefit of Breast Feed Discussed: Yes Circumcision: Yes INFORMED CONSENT Informed Consent Obtained: Vaginal Delivery; Risks, Benefits and Alternatives Discussed
--- NOTE | 2016-08-19 16:23 | Admission Physical ---
Datetime Report Generated by N: 08/19/2016 16:23 ALLERGIES Medication Allergies: Yes Medication Allergies: No Known Allergies (07/17/2016) OBSTETRICAL HISTORY EDC: 08/11/2016 00:00 (Annotations: Data stored by [facility] on behalf of user) : 4 Para: 2 Term: 2 : 0 SAB: 1 SAB: 0 IAB: 0 IAB: 0 Ectopic: 0 Ectopic: 0 Livin Livin Cesareans: 0 Cesareans: 0 VBACs: 0 VBACs: 0 Multiple Births: 0 Multiple Births: 0 Gestational Diabetes: Yes Rh Sensitization: No Incompetent Cervix: No NANO: No Infertility: No ART Treatment: No Uterine Anomaly: No IUGR: No Hx Previous C/S: No Macrosomia: No Hx Loss/Stillborn: No PIH: No Hx : No Placenta Previa/Abruption: No Depression/PP Depression: No PTL/PROM: No Post Hemorrhage: No Current Procedures: Ultrasound SEE RECORDS Alcohol: No Marijuana : No Cocaine: No Other Illicit Drugs: No Cigarettes: Current Everyday Smoker. 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: No Heart Disease: No Hosp/Surgery: Yes Autoimmune Disorder: No Anesthetic Complications: No Kidney Disease: No Abnormal Pap Smear: No Neuro/Epilepsy: No Psychiatric Disorders: No Other Medical Diseases: No Hepatitis/Liver Disease: No Significant Family History: No Varicosities/Phlebitis: No Trauma/Violence : No Thyroid Dysfunction: No INFECTIOUS HISTORY Gonorrhea: No Genital Herpes: No Chlamydia: No Tuberculosis: No Syphilis: No Hepatitis: No HIV/AIDS Exposure: No Rash or Viral Illness: No HPV: No VAGINAL EXAM Dilatation: 3 Effacement: 80 Station: 0 MEMBRANES Membranes: Ruptured Amniotic Fluid Color: Clear PLANS FOR LABOR AND DELIVERY Labor and Delivery: None Pain Management: Epidural Feeding Preference: Breast Benefit of Breast Feed Discussed: Yes Circumcision: Yes INFORMED CONSENT Informed Consent Obtained: Vaginal Delivery; Risks, Benefits and Alternatives Discussed
--- NOTE | 2016-08-19 16:37 | Admission Physical ---
Datetime Report Generated by N: 08/19/2016 16:37 ALLERGIES Medication Allergies: Yes Medication Allergies: No Known Allergies (07/17/2016) OBSTETRICAL HISTORY [facility]: 08/11/2016 00:00 (Annotations: Data stored by [facility] on behalf of user) : 4 Para: 2 Term: 2 : 0 SAB: 1 SAB: 0 IAB: 0 IAB: 0 Ectopic: 0 Ectopic: 0 Livin Livin Cesareans: 0 Cesareans: 0 VBACs: 0 VBACs: 0 Multiple Births: 0 Multiple Births: 0 Gestational Diabetes: Yes Rh Sensitization: No Incompetent Cervix: No NANO: No Infertility: No ART Treatment: No Uterine Anomaly: No IUGR: No Hx Previous C/S: No Macrosomia: No Hx Loss/Stillborn: No PIH: No Hx : No Placenta Previa/Abruption: No Depression/PP Depression: No PTL/PROM: No Post Hemorrhage: No Current Procedures: Ultrasound SEE RECORDS Alcohol: No Marijuana : No Cocaine: No Other Illicit Drugs: No Cigarettes: Current Everyday Smoker. 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 Heart Disease: No Hosp/Surgery: Yes Autoimmune Disorder: No Anesthetic Complications: No Kidney Disease: No Abnormal Pap Smear: No Neuro/Epilepsy: No Psychiatric Disorders: No Other Medical Diseases: No Hepatitis/Liver Disease: No Significant Family History: No Varicosities/Phlebitis: No Trauma/Violence : No Thyroid Dysfunction: No INFECTIOUS HISTORY Gonorrhea: No Genital Herpes: No Chlamydia: No Tuberculosis: No Syphilis: No Hepatitis: No HIV/AIDS Exposure: No Rash or Viral Illness: No HPV: No PHYSICAL EXAM General: Normal HEENT: Normal Neurologic: Normal Thyroid: Normal Heart: Normal Lungs: Normal Breast: Normal Back: Normal Abdomen: Normal Genitourinary Exam: Normal Extremities: Normal DTRs: Normal Pelvic Type: Adequate VAGINAL EXAM Dilatation: 3 Dilatation: 3 Dilatation: 3 Effacement: 80 Effacement: 80 Effacement: 80 Station: 0 Station: 0 Station: 0 MEMBRANES Membranes: Ruptured Membranes: Ruptured Membranes: Ruptured Amniotic Fluid Color: Clear Amniotic Fluid Color: Clear Amniotic Fluid Color: Clear FETUS A Admit Comment: see progress note for h and p PLANS FOR LABOR AND DELIVERY Labor and Delivery: None Pain Management: Epidural Feeding Preference: Breast Benefit of Breast Feed Discussed: Yes Circumcision: Yes INFORMED CONSENT Informed Consent Obtained: Vaginal Delivery; Risks, Benefits and Alternatives Discussed Assignment: Tracy Farah MD Signature: with User ID: Sue : with User ID: Sue
== END 2016-07-19 17:43 | disposition home or self-care (01) | DRG 775 ==
LOC: LC 04:06 → LR 04:43 → 2S 14:24
PROVIDERS: ADMIT Specialist; ATTEND Specialist
PROC: 10E0XZZ Delivery of Products of Conception, External Approach (ICD-10-PCS; principal; 2016-07-17)
PROC: 4A1HXCZ Monitoring of Products of Conception, Cardiac Rate, External Approach (ICD-10-PCS; 2016-07-17)
DX: O60.14X0 Preterm labor third trimester with preterm delivery third trimester, not applicable or unspecified (principal); O24.425 Gestational diabetes mellitus in childbirth, controlled by oral hypoglycemic drugs; O76 Abnormality in fetal heart rate and rhythm complicating labor and delivery; O99.334 Smoking (tobacco) complicating childbirth; F17.200 Nicotine dependence, unspecified, uncomplicated; Z3A.36 36 weeks gestation of pregnancy; Z37.0 Single live birth
CPT/HCPCS: 36415; 80307; 81005; 82962; 84112; 85025; 85027; 86592; 86850; 86900; 86901; 87491; 87591; 88307; G0480; J2540; J2590; J3490

== ENCOUNTER 2017-05-05 20:16 | Emergency (ER) | payer SELFPAY ==
[2017-05-05 21:16] LABS: ABSOLUTE BASOPHILS # (AUTO) 0.1 10^3/uL (0.0-0.2); ABSOLUTE EOSINOPHILS # (AUTO) 0.1 10^3/uL (0.0-0.6); ABSOLUTE LYMPHOCYTES (AUTO) 2.4 10^3/uL (0.5-4.7); ABSOLUTE MONOCYTES (AUTO) 0.8 10^3/uL (0.1-1.4); ABSOLUTE NEUT (AUTO) 8.7 10^3/uL (1.7-8.2); BASOPHILS % (AUTO) 0.5 % (0-2); EOSINOPHILS % (AUTO) 0.5 % (0-6); HEMATOCRIT 32.6 % (36.0-47.0); HEMOGLOBIN 11.3 g/dL (12.0-15.5); LYMPHOCYTES % (AUTO) 20.2 % (13-45); MEAN CORPUSCULAR HEMOGLOBIN 30.6 pg (27.0-33.4); MEAN CORPUSCULAR HGB CONC 34.7 g/dL (32.0-36.0); MEAN CORPUSCULAR VOLUME 88 fl (80-97); MONOCYTES % (AUTO) 6.3 % (3-13); PLATELET COUNT 314 10^3/uL (150-450); RED CELL DISTRIBUTION WIDTH 16.1 % (11.5-14.0); SEGMENTED NEUTROPHILS % (AUTO) 72.5 % (42-78); TOTAL CELLS COUNTED % (AUTO) 100 %; WHITE BLOOD COUNT 11.9 10^3/uL (4.0-10.5)
[2017-05-05 21:23] LABS: APPEARANCE,URINE SLIGHTLY-CLOUDY; BILIRUBIN,URINE NEGATIVE (NEGATIVE); COLOR,URINE STRAW; GLUCOSE, URINE NEGATIVE (NEGATIVE); KETONES,URINE NEGATIVE (NEGATIVE); LEUKOCYTE ESTERASE,URINE NEGATIVE (NEGATIVE); NITRITE,URINE NEGATIVE (NEGATIVE); PROTEIN,URINE NEGATIVE (NEGATIVE); URINE SPECIFIC GRAVITY 1.002; UROBILINOGEN,URINE NEGATIVE mg/dL (<2.0)
[2017-05-05 21:32] LABS: ALANINE AMINOTRANSFERASE 22 U/L (9-52); ALBUMIN 3.5 g/dL (3.5-5.0); ALKALINE PHOSPHATASE 72 U/L (38-126); ANION GAP 6 (5-19); ASPARTATE AMINO TRANSFERASE 19 U/L (14-36); BILIRUBIN,DIRECT 0.1 mg/dL (0.0-0.4); BILIRUBIN,TOTAL 0.2 mg/dL (0.2-1.3); BLOOD UREA NITROGEN 6 mg/dL (7-20); CALCIUM 9.3 mg/dL (8.4-10.2); CARBON DIOXIDE 26 mmol/L (22-30); CHLORIDE 104 mmol/L (98-107); GLUCOSE 93 mg/dL (75-110); LIPASE 69.7 U/L (23-300); POTASSIUM 3.6 mmol/L (3.6-5.0)
--- NOTE | 2017-05-05 23:16 | RADIOLOGY REPORT (SQ) ---
EXAM DESCRIPTION: U/S OB 14+ TRNABD 1GES W/O DOP COMPLETED DATE/TIME: 05/05/2017 10:28 pm REASON FOR STUDY: abd pain COMPARISON: None. TECHNIQUE: Static and Dynamic grayscale imaging performed of gravid uterus using transabdominal appr oach. Additional selected color Doppler and spectral images recorded. All stored on PACS. LIMITATIONS: None. FINDINGS: EGA: 23 weeks 1 day CUONG: 08/31/2017 EFW: 575 grams PERCENTILE: 49th percentile RUTH: Largest pocket 5.9 cm PLACENTA: Posterior fundal grade 1. Along months posterior inferior margin of the placenta, a promi nent placental priest is present about 3.5 x 2 cm in size. No placental abruption identified PRESENTATION: Cephalic. ANATOMY: HEART RATE: 152 beats per minute. FOUR CHAMBER HEART: Visualized. THREE VESSEL CORD: Yes. CORD INSERTION: Visualized. KIDNEYS AND BLADDER: Visualized. Appear normal. STOMACH: Visualized. Appears normal. SPINE: Normal as visualized. BRAIN AND LATERAL VENTRICLES: Visualized. Appear normal. OTHER: No other significant finding. MATERNAL ADNEXA: Maternal ovaries not visualized. CERVICAL LENGTH: 3.1 cm. Closed. OTHER: No other significant finding. IMPRESSION: LIVING INTRAUTERINE . ESTIMATED GESTATIONAL AGE 23 weeks 1 day Prominent placental Priest. Trimester of : Second trimester - 13 weeks 1 day to 27 weeks 6 days. TECHNICAL DOCUMENTATION: JOB ID: [id number] [employer]- All Rights Reserved
--- NOTE | 2017-05-05 23:28 | ER Document Report ---
ED General - General Chief Complaint: Lower Abdominal Pain Stated Complaint: STOMACH PAIN Time Seen by Provider: 05/05/17 21:03 Mode of Arrival: Ambulatory Information source: Patient Notes: 41-year-old female history of 3 previous pregnancies presents with concerns of being . Patient denies any fevers or chills denies any nausea vomiting or diarrhea patient notes she stop smoking has been taking vitamins but has not had a confirmed IUP. Admits to suprapubic pressure and urinary frequency TRAVEL OUTSIDE OF THE [place] IN LAST 30 DAYS: No - HPI Onset: Last week Onset/Duration: Persistent Quality of pain: Achy Severity: Mild Pain Level: 1 Associated symptoms: Other Exacerbated by: Denies Relieved by: Denies Similar symptoms previously: Yes Recently seen / treated by doctor: No - Related Data Allergies/Adverse Reactions: No Known Allergies Allergy (Verified 07/17/16 04:17) Past Medical History - Social History Smoking Status: Former Smoker Cigarette use (# per day): No Chew tobacco use (# tins/day): No Smoking Education Provided: No Frequency of alcohol use: None Drug Abuse: None Family History: Reviewed & Not Pertinent Patient has suicidal ideation: No Patient has homicidal ideation: No Renal/ Medical History: Denies: Hx Peritoneal Dialysis Review of Systems - Review of Systems Notes: REVIEW OF SYSTEMS: CONSTITUTIONAL : Denies fever, chills, or sweats. Denies recent illness. EENT: Denies eye, ear, throat, or mouth pain or symptoms. Denies nasal or sinus congestion or discharge. Denies throat, tongue, or mouth swelling or difficulty swallowing. CARDIOVASCULAR: Denies chest pain. Denies palpitations or racing or irregular heart beat. Denies ankle edema. RESPIRATORY: Denies cough, cold, or chest congestion. Denies shortness of breath, difficulty breathing, or wheezing. GASTROINTESTINAL: Denies abdominal pain or distention. Denies nausea, vomiting , or diarrhea. Denies blood in vomitus, stools, or per rectum. Denies black, tarry stools. Denies constipation. GENITOURINARY: Miss to urinary frequency FEMALE GENITOURINARY: Denies vaginal bleeding, heavy or abnormal periods, irregular periods. Denies vaginal discharge or odor. MUSCULOSKELETAL: Denies back or neck pain or stiffness. Denies joint pain or swelling. SKIN: Denies rash, lesions or sores. HEMATOLOGIC : Denies easy bruising or bleeding. LYMPHATIC: Denies swollen, enlarged glands. NEUROLOGICAL: Denies confusion or altered mental status. Denies passing out or loss of consciousness. Denies dizziness or lightheadedness. Denies headache. Denies weakness or paralysis or loss of use of either side. Denies problems with gait or speech. Denies sensory loss, numbness, or tingling. Denies seizures. PSYCHIATRIC: Denies anxiety or stress. Denies depression, suicidal ideation, or homicidal ideation. ALL OTHER SYSTEMS REVIEWED AND NEGATIVE. PHYSICAL EXAMINATION: GENERAL: Well-appearing, well-nourished and in no acute distress. HEAD: Atraumatic, normocephalic. EYES: Pupils equal round and reactive to light, extraocular movements intact, conjunctiva are normal. ENT: Nares patent, oropharynx clear without exudates. Moist mucous membranes. NECK: Normal range of motion, supple without lymphadenopathy LUNGS: Breath sounds clear to auscultation bilaterally and equal. No wheezes rales or rhonchi. HEART: Regular rate and rhythm without murmurs ABDOMEN: Soft, gravid abdomen Female : deferred Musculoskeletal: Normal range of motion, no pitting or edema. No cyanosis. NEUROLOGICAL: Cranial nerves grossly intact. Normal speech, normal gait. Normal sensory, motor exams PSYCH: Normal mood, normal affect. SKIN: Warm, Dry, normal turgor, no rashes or lesions noted. Dictation was performed using Credible voice recognition software Physical Exam - Vital signs Vitals: Temp Pulse Resp BP Pulse Ox 99.1 F 91 20 142/87 H 99 05/05/17 20:28 05/05/17 20:28 05/05/17 20:28 05/05/17 20:28 05/05/17 20:28 Course - Re-evaluation Re-evalutation: 05/05/17 23:28 Lab work noted no significant abnormality, patient's ultrasound is consistent with a IUP, report was given to the patient. Given that she is not having any vaginal bleeding discharge I expect life-threatening issues. Patient's urinalysis noted no significant signs of infection Patient will be given follow-up with IRRIGATION WORKER for further evaluation care After performing a Medical Screening Examination, I estimate there is LOW risk for ACUTE APPENDICITIS, BOWEL OBSTRUCTION, ACUTE CHOLECYSTITIS, PERFORATED DIVERTICULITIS, INCARCERATED HERNIA, PANCREATITIS, PELVIC INFLAMMATORY DISEASE, PERFORATED ULCER, ECTOPIC , or TUBO-OVARIAN ABSCESS, thus I consider the discharge disposition reasonable. Also, there is no evidence or peritonitis , sepsis, or toxicity. I have reevaluated this patient multiple times and no significant life threatening changes are noted. The patient and I have discussed the diagnosis and risks, and we agree with discharging home with close follow-up with the understanding that symptoms and presentations can change. We also discussed returning to the Emergency Department immediately if new or worsening symptoms occur. We have discussed the symptoms which are most concerning (e.g., bloody stool, fever, changing or worsening pain, vomiting) that necessitate immediate return. - Vital Signs Vital signs: Temp Pulse Resp BP Pulse Ox 99.1 F 91 20 142/87 H 99 05/05/17 20:28 05/05/17 20:28 05/05/17 20:28 05/05/17 20:28 05/05/17 20:28 - Laboratory Result Diagrams: 05/05/17 21:05 05/05/17 21:05 Laboratory results interpreted by me: 05/05/17 05/05/17 05/05/17 21:05 21:05 21:06 WBC 11.9 H RBC 3.70 L Hgb 11.3 L Hct 32.6 L RDW 16.1 H Absolute Neutrophils 8.7 H Sodium 136.0 L BUN 6 L Total Protein 6.0 L Beta HCG, Quant 4955.90 H Urine Blood SMALL H - Diagnostic Test Radiology reviewed: Image reviewed, Reports reviewed Discharge - Discharge Clinical Impression: Abdominal pain affecting AMA (advanced maternal age) multigravida 35+ Qualifiers: Trimester: second trimester Qualified Code(s): O09.522 - Supervision of elderly multigravida, second trimester Qualifiers: Weeks of gestation: 23 weeks Qualified Code(s): Z3A.23 - 23 weeks gestation of Condition: Stable Disposition: HOME, SELF-CARE Instructions: Pelvic Pain in ([facility]) Referrals: [facility] [Provider Group] - Follow up tomorrow
[2017-05-06 00:05] VITALS: BP 134/82
== END 2017-05-06 00:04 | disposition home or self-care (01) ==
LOC: ER 20:16
DX: O09.522 Supervision of elderly multigravida, second trimester (principal); R10.30 Lower abdominal pain, unspecified; R35.0 Frequency of micturition; Z87.891 Personal history of nicotine dependence; Z3A.23 23 weeks gestation of pregnancy
CPT/HCPCS: 36415; 76805; 80053; 81001; 83690; 84702; 85025; 99284

== ENCOUNTER → 2017-05-26 | Outpatient (CLI) | payer SELFPAY ==
--- NOTE | 2017-05-26 18:36 | RADIOLOGY REPORT (SQ) ---
EXAM DESCRIPTION: U/S OB 14+ TRNABD 1GES W/O DOP COMPLETED DATE/TIME: 05/26/2017 3:26 pm REASON FOR STUDY: ENCOUNTER FOR SUPERVISION OF OTHER NORMAL , SECOND TRIMESTER Z34.82 ENCO UNTER FOR SUPRVSN OF NORMAL , SECOND TRI COMPARISON: 05/05/2017 TECHNIQUE: Static and Dynamic grayscale imaging performed of gravid uterus using transabdominal appr oach. Additional selected color Doppler and spectral images recorded. All stored on PACS. LIMITATIONS: None. FINDINGS: EGA: 26 weeks 1 day CUONG: 08/31/2017 EFW: 897 grams PERCENTILE: 54% of RUTH: The largest pocket 5.2 cm PLACENTA: Posterior grade 1. There is a prominent placental Priest along the inferior aspect of the pl acenta, 4.5 x 2.5 cm in size. This is similar compared to the ultrasound exam 05/05/2017 PRESENTATION: Transverse ANATOMY: HEART RATE: 152 beats per minute. FOUR CHAMBER HEART: Visualized. THREE VESSEL CORD: Yes. CORD INSERTION: Visualized. KIDNEYS AND BLADDER: Visualized. Appear normal. STOMACH: Visualized. Appears normal. SPINE: Normal as visualized. BRAIN AND LATERAL VENTRICLES: Visualized. Appear normal. OTHER: No other significant finding. MATERNAL ADNEXA: Maternal ovaries not visualized. CERVICAL LENGTH: Not well seen. OTHER: No other significant finding. IMPRESSION: LIVING INTRAUTERINE . ESTIMATED GESTATIONAL AGE 26 weeks 1 day No anomalies are identified. Prominent placental Priest along the posterior inferior margin of t he placenta. Trimester of : Second trimester - 13 weeks 1 day to 27 weeks 6 days. TECHNICAL DOCUMENTATION: JOB ID: [id number] [employer]- All Rights Reserved
== END ==
LOC: RAD 13:41
PROVIDERS: ATTEND Nurse Practitioner Women's Health
DX: Z34.82 Encounter for supervision of other normal pregnancy, second trimester (principal)
CPT/HCPCS: 76805